=== PATIENT | female | born 1940 | race Caucasian/White ===

== ENCOUNTER 2021-06-28 06:04 | Observation (INO) | payer OTHER ==
[2021-06-23 09:06] LABS: Urine Appearance CLEAR (Clear); Urine Bilirubin NEGATIVE (Negative); Urine Blood NEGATIVE (Negative); Urine Color YELLOW (Yellow); Urine Glucose NEGATIVE (Negative); Urine Protein NEGATIVE (Negative); Urine Specific Gravity <=1.005 (1.005-1.030); Urine pH 6.5 (5.0-7.0)
[2021-06-23 09:10] LABS: Absolute Lymphocytes (CBC) 1.3 K/uL (0.7-4.9); Basophils % 0.6 % (0-1.3); Hematocrit 42.1 % (36.0-45.0); Lymphocytes % 16.2 % (15.3-44.8); MPV 7.3 fL (7.6-11.3); RBC Red Blood Cell Count 4.77 M/uL (3.86-4.86)
[2021-06-23 09:13] LABS: Urine Microscopic Reflex NO UMIC
[2021-06-23 09:33] LABS: Albumin 4.1 g/dL (3.4-5.0); Bilirubin Total 0.5 mg/dL (0.2-1.0); Potassium 3.5 mmol/L (3.5-5.1); Protein, Total 7.6 g/dL (6.4-8.2)
[2021-06-23 09:42] LABS: Protime INR 0.93
--- NOTE | 2021-06-23 10:45 | RAD REPORT ---
EXAM DESCRIPTION: Mellisa Alba (2 Views)06/23/2021 8:55 am CLINICAL HISTORY: Preop COMPARISON: 2014 FINDINGS: Large hiatal hernia. Small granuloma left lung The lungs appear clear of acute infiltrate. The heart is probably normal in size IMPRESSION: No acute abnormalities displayed
[2021-06-28] MEDS ORDERED: GABAPENTIN 100 MG CAP ONE (06:45)
[2021-06-28] MEDS ORDERED: ACETAMINOPHEN 500 MG TAB ONE (06:45)
[2021-06-28] MEDS ORDERED: CELECOXIB 100 MG CAPSULE ONE (06:45)
[2021-06-28] MEDS ORDERED: FENTANYL CITR 100 MCG/2 ML ONE (06:45)
[2021-06-28] MEDS ORDERED: MIDAZOLAM HCL 2 MG/2 ML INJ ONE (06:45)
[2021-06-28] MEDS ORDERED: LIDOCAINE 1% MPF 5 ML VIAL ONE (06:45)
[2021-06-28] MEDS ORDERED: dexAMETHasone 10 MG/ML VIAL ONE ×2 (06:45→07:45)
[2021-06-28] MEDS ORDERED: NS 0.9% VIAL 10 ML ONE ×2 (06:45→08:22)
[2021-06-28] MEDS ORDERED: NA CHLORIDE 0.9% 1,000 ML ONE (06:46)
[2021-06-28] MEDS ORDERED: Oxycodone HCl/Acetaminophen 1 TAB TAB ONE (06:46)
[2021-06-28] MEDS ORDERED: HYDROMORPHONE HCL 1 MG/ML INJ ONE (06:46)
[2021-06-28] MEDS ORDERED: BUPIVACAINE 0.25% PF 30 ML VIAL ONE (06:46)
[2021-06-28] MEDS ORDERED: TRANEXAMIC ACID 1,000 MG in NA CHLORIDE 0.9% 50 ML IV ONE (07:00)
[2021-06-28] MEDS: CEFAZOLIN/SWI 2gm 2 GM/20 ML SYR ONE ×2 (07:40→07:59)
[2021-06-28] MEDS ORDERED: KETOROLAC 30 MG/ML INJ ONE (07:45)
[2021-06-28] MEDS ORDERED: LIDOCAINE 2% MPF 5 ML VIAL ONE (07:45)
[2021-06-28] MEDS ORDERED: propofoL 200 MG/20 ML VIAL IV ONE (07:45)
[2021-06-28] MEDS ORDERED: KETAMINE HCL 500 MG/5 ML VIAL ONE (07:46)
[2021-06-28] MEDS ORDERED: ONDANSETRON 4 MG/2 ML VIAL ONE (07:46)
[2021-06-28] MEDS ORDERED: EPHEDRINE SULF 50 MG/ML VIAL ONE (08:54)
--- NOTE | 2021-06-28 09:28 | P.BOP ---
Preoperative diagnosis: left knee arthritis Postoperative diagnosis: same Primary procedure: left total knee arthoplasty Estimated blood loss: <50 ccs Anesthesia: General Complications: None Transferred to: Recovery Room
[2021-06-28] MEDS ORDERED: DOCUSATE NA 100 MG CAP PO PRN (09:30)
[2021-06-28] MEDS ORDERED: MORPHINE/NS PCA 50 MG/50 ML PCA.SYRING IV PRN (09:30)
[2021-06-28] MEDS ORDERED: NALOXONE 0.4 MG/ML VIAL IV PRN (09:30)
[2021-06-28] MEDS ORDERED: HYDROCODONE/APAP 7.5/325 MG TAB PO PRN (09:30)
[2021-06-28] MEDS ORDERED: Ringers Lactate 1,000 ML IV ONE (09:39)
--- NOTE | 2021-06-28 09:56 | OP ---
Date of Procedure: 06/28/2021 Surgeon: Yahir Norris MD Preoperative Diagnosis: Left severe degenerative joint disease of the knee. Postoperative Diagnosis: Left severe degenerative joint disease of the knee. Procedure: Left total knee arthroplasty using the [employer] system. Estimated Blood Loss: Less than 50 mL. Complications: There were no complications. Pathology Specimens: No pathology specimens. Indications For Operation: Ms. Lopez is an 81-year-old female, who unfortunately has severe pain related to her left knee. This continues despite conservative care and risks, benefits, and alternat kavita to total knee arthroplasty discussed with her. She states she understands things as presented a nd wished to proceed. Procedure In Detail: The patient was then given a block in the holding area and then taken to the op erating room where general anesthesia was obtained by the Anesthesia staff. Following this, she was then placed on the operative table and her left lower extremity was then prepped and draped in the ua sterile fashion for arthroplasty. Following this, the leg was then elevated and gently exsanguin ated using an Pankaj wrap. Tourniquet was raised. A standard anterior incision was taken down carefull y through skin only. Meticulous hemostasis being maintained using Bovie electrocautery. The appropr iate level was developed and the superior medial pole of patella was marked. This was then followed by a standard medial parapatellar arthrotomy, which demonstrates severe bone on bone changes on the m edial side as well as less severe arthritic changes of the patellofemoral joint and the lateral selena rtment. The medial and lateral menisci as well as some of the fat pad were removed as the patella wa s everted. The anterior cruciate ligament was removed. An intramedullary alignment guide was then p laced. A distal cut was then made. It was then sized to a size 65. The remainder of the femur was then cut. Attention was then turned to the tibia, which was cut in a standard fashion to a size 71 a nd appeared to be appropriate. After this, it was then trialed and was found to come to full extensi on to be well balanced in both flexion and extension. Attention was then turned to patella. It was calipered and cut, and then the knee was brought through a range of motion with the trial patella and appears quite appropriately. After this, the trial components were removed and the box cut in the t ibia was punched. The joint surfaces were prepped for cementation. All of the final implants with t he exception of the polyethylene were then placed and held in place with removal any unsupported ceme nt until dried. After this, it was brought through range of motion and the final poly was then place d. At the conclusion of the case, the knee goes through full range of motion and found to be stable and with good balancing. The patella glides appropriately. The wound was copiously irrigated and th e fascia closed in a watertight fashion using Ethibond sutures followed by closure of skin using Vicr yl followed by mayela. The patient was then placed in a well-padded sterile dressing, awakened, and taken to the recovery room in good condition. There were no complications. SE/MODL Voice ID: [id number] Report ID: [id number]
[2021-06-28] MEDS: HYDROMORPHONE HCL 1 MG/ML INJ ONE ×3 (10:01→10:16)
[2021-06-28] MEDS ORDERED: ONDANSETRON 4 MG/2 ML VIAL IV PRN (10:31)
[2021-06-28] MEDS ORDERED: HYDRALAZINE HCL 20 MG/ML VIAL IV PRN (10:44)
--- NOTE | 2021-06-28 10:48 | P.CNS ---
<Juan Mason - Last Filed: 06/28/21 14:29> Date of Consult: 06/28/21 Reason for Consult: Medical Management Requesting Physician: Yahir Norris Chief Complaint: Left knee pain History of Present Illness: Patient is an 81 year old female with a past medical history significant for DM 2, hypertension, OA, glaucoma who presented to the hospital for a left knee replacement with her orthopedic surgeon. Patient has been following up with her with orthopedic surgeon for left knee pain secondary to osteoarthritis and has had a couple of knee injections over the past couple of months. 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 Patient tolerated procedure appropriately. No signs or symptoms of distress noted. Patient's left knee pain is well managed with current pain medication regimen. Symptoms are aggravated or relieved by nothing. Orthopedic surgeon ordered pain medication and physical therapy. As at time of assessment patient was on a CPM machine. The hospitalist group was consulted for medical management. Home medications list reviewed: Yes - Past Medical/Surgical History Diabetic: Yes -: hypertension -: glaucoma -: arthritis -: hysterectomy -: right knee replacement -: gallbladder -: cataract -: hemorrhoid - Family History Mother Medical History: Other (see notes) Notes: Osteoporosis - Social History Smoking Status: Never smoker Alcohol use: No CD- Drugs: No Caffeine use: Yes Place of Residence: Home <Georgina Torres - Last Filed: 06/28/21 15:48> Allergies codeine Allergy (Verified 06/28/21 06:57) "Jittery" nitrous oxide Allergy (Verified 06/28/21 06:57) Shortness of breath Home Medications: Acetaminophen [Acetaminophen Extra Strength] 500 mg PO Q6HP PRN 06/23/21 Amlodipine Besylate/Valsartan [Amlodipine-Valsartan 10-160 mg] 1 each PO DAILY 06/23/21 Bimatoprost [Lumigan Opthalmic Drops] 2.5 ml OP BEDTIME 06/23/21 Review of Systems General: Unremarkable Eyes: Unremarkable ENT: Unremarkable Respiratory: Unremarkable Cardiovascular: Unremarkable Gastrointestinal: Unremarkable Genitourinary: Unremarkable Musculoskeletal: Other (Left knee pain) Integumentary: Unremarkable Neurological: Unremarkable Lymphatics: Unremarkable <Georgina Torres - Last Filed: 06/28/21 15:48> Physical Examination Temp Pulse Resp BP Pulse Ox 96.8 F 69 17 124/69 96 06/28/21 12:00 06/28/21 12:00 06/28/21 12:00 06/28/21 12:00 06/28/21 12:00 Laboratory Data (last 24 hrs) 06/28/21 10:49: Triglycerides 98, Cholesterol 193, HDL Cholesterol 70 H, Cholesterol/HDL Ratio 2.76 06/28/21 10:49: Troponin I < 0.02 <Juan Mason - Last Filed: 06/28/21 14:29> Temp Pulse Resp BP Pulse Ox 98 F 105 H 18 128/73 06/28/21 10:17 06/28/21 10:17 06/28/21 10:17 06/28/21 10:17 General: Alert, In no apparent distress, Oriented x3 HEENT: Atraumatic, PERRLA, Mucous membr. moist/pink, EOMI, Sclerae nonicteric Neck: Supple, 2+ carotid pulse no bruit, No LAD, Without JVD or thyroid abnormality Respiratory: Clear to auscultation bilaterally, Normal air movement Cardiovascular: No edema, Regular rate/rhythm, Normal S1 S2 Capillary refill: <2 Seconds Gastrointestinal: Normal bowel sounds, No tenderness Musculoskeletal: No clubbing, No swelling, No tenderness Integumentary: No rashes, No breakdown Neurological: Normal gait, Normal speech, Normal tone, Normal affect Lymphatics: No axilla or inguinal lymphadenopathy External genitalia: Deferred Rectal: Deferred <Georgina Torres - Last Filed: 06/28/21 15:48> Conclusions/Impression: Case discussed with orthopedic surgeon. Case also discussed with nurse occupational who has seen the patient. We will continue with medications for hypertension, diabetes. Physical therapy to be initiated. Anticipate improvement over the next 24 to 48 hours. Surgery plans to possibly discharge as early as tomorrow. Impression: Left knee pain secondary to severe arthritis status post left knee replacement Hypertension Diabetes mellitus type 2 Glaucoma Plan: Restart home medications. DVT prophylaxis in place. Will monitor labs closely. Accu-Cheks in place. Sliding scale in place. Will follow along with orthopedics. <Juan Mason - Last Filed: 06/28/21 14:29> Conclusions/Impression: --Left knee pain. Secondary to osteoarthritis. Status post left knee replacement POD #1. Continue physical therapy. Social service consult initiated for discharge planning. Orthopedic surgeon on board. Will await further recommendations from orthopedic surgeon. -- Acute pain\\OA. We will manage pain with current pain medication regimen. --Hypertension. Stable. Continue home medications and hydralazine p.r.n.. --DM 2. BS monitoring with sliding scale insulin. --Glaucoma. Continue home medications. --DVT prophylaxis with Lovenox subQ Documentation of Current Medications in the Medical Record - 18+ years old: Code: G8427 - current medications obtained, updated, or reviewed. Pain Assessment and Follow-Up - 18+ years old: Code: G8730 - pain assessment positive with standardized tool AND a follow up plan is documented. I have had discussion about advanced directives with the patient and /or family during this hospital admission. Addressed code status and /or goals of care. Spent more than 15 minutes. Case discussed with patient and nurse. Discharge Dispo: Plan is to discharge patient in 24 hrs. Physician Review: Patient Assessed, Agree with Above Assessment and Plan Critical Care: No <Georgina Torres - Last Filed: 06/28/21 15:48>
[2021-06-28] MEDS: INSULIN -REGULAR HUMAN 50 UNIT/0.5 ML ML SQ SCH ×3 (11:30→21:00)
[2021-06-28 13:44] VITALS: BMI 23.6
[2021-06-28] MEDS ORDERED: CEFAZOLIN/NS 1gm 1 GM/50 ML BAG IVPB SCH (17:00)
[2021-06-28] MEDS ORDERED: SODIUM CHL 0.9% 1000 ML BAG IV SCH ×2 (18:00)
[2021-06-28] MEDS: CEFAZOLIN/SWI 1gm 1 GM/10 ML SYR IV SCH (18:39)
[2021-06-28] MEDS ORDERED: NA CHLORIDE 0.9% 1,000 ML IV SCH (19:00)
[2021-06-28] MEDS: LUMIGAN OPTH SCH (21:00)
[2021-06-28 21:21] LABS: Urine Appearance CLEAR (Clear); Urine Bilirubin NEGATIVE (Negative); Urine Blood NEGATIVE (Negative); Urine Color YELLOW (Yellow); Urine Glucose 1+ (Negative); Urine Protein NEGATIVE (Negative); Urine Specific Gravity 1.015 (1.005-1.030); Urine Urobilinogen 0.2 mg/dL (0.2-1.0); Urine pH 6.5 (5.0-7.0)
[2021-06-28 21:34] LABS: Urine Microscopic Reflex NO UMIC
[2021-06-29] MEDS: CEFAZOLIN/SWI 1gm 1 GM/10 ML SYR IV SCH ×2 (00:37→09:49)
[2021-06-29] MEDS ORDERED: ENOXAPARIN 30 MG/0.3 ML SQ SCH (06:00)
--- NOTE | 2021-06-29 06:01 | P.PN ---
Subjective Date of Service: 06/29/21 Chief Complaint: Left knee pain Subjective: Improving, Doing well Physical Examination - Vital Signs Temperature: 96.9 F Blood Pressure: 128/76 Pulse: 95 Respirations: 18 Pulse Ox (%): 94 - Studies Laboratory Data (last 24 hrs) 06/28/21 10:49: Triglycerides 98, Cholesterol 193, HDL Cholesterol 70 H, Cholesterol/HDL Ratio 2.76 06/28/21 10:49: Troponin I < 0.02 Assessment & Plan Discharge Plan: Other (nursing home facility) Plan to discharge in: 48 Hours Physician Review Additional Text: Surgery: Date of Procedure: 06/28/2021 Surgeon: Yahir Norris MD Preoperative Diagnosis: Left severe degenerative joint disease of the knee. Postoperative Diagnosis: Left severe degenerative joint disease of the knee. Procedure: Left total knee arthroplasty using the [employer] system. Estimated Blood Loss: Less than 50 mL. Complications: There were no complications. Pathology Specimens: No pathology specimens. Physical exam: General: Alert, In no apparent distress, Oriented x3 HEENT: Atraumatic, PERRLA, Mucous membr. moist/pink, EOMI, Sclerae nonicteric Neck: Supple, 2+ carotid pulse no bruit, No LAD, Without JVD or thyroid abnormality Respiratory: Clear to auscultation bilaterally, Normal air movement Cardiovascular: No edema, Regular rate/rhythm, Normal S1 S2 Capillary refill: <2 Seconds Gastrointestinal: Normal bowel sounds, No tenderness Musculoskeletal: Postop changes noted to the left knee. Patient ambulating. Integumentary: Postop changes noted to the left knee Neurological: Normal gait, Normal speech, Normal tone, Normal affect Lymphatics: No axilla or inguinal lymphadenopathy External genitalia: Deferred Rectal: Deferred Impression: Left knee pain secondary to severe arthritis status post left knee replacement Hypertension Prediabetes Glaucoma Plan: Left knee pain secondary to severe arthritis status post left knee replacement: Patient doing well at this time. Patient prefers to go to a skilled facility as she is by herself and desires assistance. Social work to help with skilled placement. Will discontinue Lovenox and changed to Xarelto for DVT prophylaxis. We will also discontinue POLEYARD SUPERVISOR pump and change to oral medications. Options for oral medication provided for pain. Continue physical therapy. Will discuss with orthopedics. Hypertension: Continue Norvasc and valsartan. Parameters in place. Prediabetes: Hemoglobin A1c 5.9 continue monitor Accu-Cheks. Continue with sliding scale. Glaucoma: Continue with home medication. CODE STATUS: Full code DVT prophylaxis: Gigi Advance care [id number] minutes: Skilled placement for continued rehab Time Spent Managing Pts Care (In Minutes): 55
[2021-06-29 06:25] LABS: Protime INR 0.97
[2021-06-29 06:30] LABS: Absolute Lymphocytes (CBC) 0.5 K/uL (0.7-4.9); Basophils % 0.1 % (0-1.3); Hematocrit 32.6 % (36.0-45.0); Lymphocytes % 4.3 % (15.3-44.8); MPV 7.4 fL (7.6-11.3)
[2021-06-29 06:33] LABS: ALT/SGPT 21 U/L (12-78); AST/SGOT 11 U/L (15-37); Albumin 3.4 g/dL (3.4-5.0); Alkaline Phosphatase 59 U/L (45-117); BUN Blood Urea Nitrogen 12 mg/dL (7-18); Bicarbonate 27 mmol/L (21-32); Bilirubin Total 0.5 mg/dL (0.2-1.0); Glucose Level 148 mg/dL (74-106); Potassium 3.7 mmol/L (3.5-5.1); Protein, Total 6.3 g/dL (6.4-8.2); Sodium Level 141 mmol/L (136-145)
[2021-06-29] MEDS: INSULIN -REGULAR HUMAN 50 UNIT/0.5 ML ML SQ SCH ×4 (07:30→21:00)
[2021-06-29] MEDS ORDERED: [UNRECOGNIZED DRUG - OTHER] PO SCH (09:00)
[2021-06-29] MEDS ORDERED: VALSARTAN PO SCH (09:00)
[2021-06-29] MEDS ORDERED: AMLODIPINE BESYLATE PO SCH (09:00)
[2021-06-29] MEDS: VALSARTAN 160 MG TAB PO SCH (09:48)
[2021-06-29] MEDS: AMLODIPINE 10 MG TAB PO SCH (09:49)
[2021-06-29] MEDS ORDERED: TRAMADOL HCL 50 MG TAB PO PRN (12:47)
[2021-06-29] MEDS ORDERED: HYDROCODONE/APAP 7.5/325 MG TAB PO PRN (12:48)
[2021-06-29 13:57] LABS: Blood Morphology Comment NOT SEEN (NOT SEEN); Platelet Estimate ADEQ; White Blood Cell Scan OK (OK)
[2021-06-29] MEDS: LUMIGAN OPTH SCH (21:00)
[2021-06-29] MEDS: ACETAMINOPHEN 500 MG TAB PO PRN (22:28)
[2021-06-30] MEDS: ACETAMINOPHEN 500 MG TAB PO PRN (01:15)
--- NOTE | 2021-06-30 06:17 | P.PN ---
Subjective Date of Service: 06/30/21 Chief Complaint: Left knee pain Subjective: Improving, Doing well Physical Examination - Vital Signs Temperature: 96.9 F Blood Pressure: 127/67 Pulse: 97 Respirations: 16 Pulse Ox (%): 93 - Studies Laboratory Data (last 24 hrs) 06/29/21 05:51: Sodium 141, Potassium 3.7, BUN 12, Creatinine 0.55, Glucose 148 H, Total Bilirubin 0.5, AST 11 L, ALT 21, Alkaline Phosphatase 59 06/29/21 05:51: PT 11.2, INR 0.97 06/29/21 05:51: WBC 12.20 H D, Hgb 11.2 L D, Hct 32.6 L D, Plt Count 213 Assessment & Plan Discharge Plan: Home Plan to discharge in: 24 Hours Physician Review Additional Text: Surgery: Date of Procedure: 06/28/2021 Surgeon: Yahir Norris MD Preoperative Diagnosis: Left severe degenerative joint disease of the knee. Postoperative Diagnosis: Left severe degenerative joint disease of the knee. Procedure: Left total knee arthroplasty using the Bi[employer] system. Estimated Blood Loss: Less than 50 mL. Complications: There were no complications. Pathology Specimens: No pathology specimens. Physical exam: General: Alert, In no apparent distress, Oriented x3 HEENT: Atraumatic, PERRLA, Mucous membr. moist/pink, EOMI, Sclerae nonicteric Neck: Supple, 2+ carotid pulse no bruit, No LAD, Without JVD or thyroid abnormality Respiratory: Clear to auscultation bilaterally, Normal air movement Cardiovascular: No edema, Regular rate/rhythm, Normal S1 S2 Capillary refill: <2 Seconds Gastrointestinal: Normal bowel sounds, No tenderness Musculoskeletal: Postop changes noted to the left knee. Patient ambulating. Integumentary: Postop changes noted to the left knee Neurological: Normal gait, Normal speech, Normal tone, Normal affect Lymphatics: No axilla or inguinal lymphadenopathy External genitalia: Deferred Rectal: Deferred Impression: Left knee pain secondary to severe arthritis status post left knee replacement Hypertension Prediabetes Glaucoma Plan: Left knee pain secondary to severe arthritis status post left knee replacement: Patient doing well postoperatively. Discussed options of postop care provided. Patient not a candidate for inpatient rehab. Skilled placement likely to decline due to her increased mobility. Patient agreeable to go home with home health and physical therapy. This was discussed in detail with the patient. Will consult clinical social work therapist to help arrange for home health and physical th erapy. Case discussed with orthopedics who agrees with plan of care. I will provide Xarelto 10 mg daily for the next 14 days. Patient will continue with her home medication for blood pressure. Fall precautions in place. Physical therapy to continue with recommendations and follow-up. Hypertension: Continue home medication at home Prediabetes: Hemoglobin A1c 5.9 continue monitor Accu-Cheks. Continue with sliding scale. Glaucoma: Continue with home medication. CODE STATUS: Full code DVT prophylaxis: Xarelto Advance care [email or web address] minutes: Home with home health and physical therapy Time Spent Managing Pts Care (In Minutes): 55
[2021-06-30 06:32] LABS: Hematocrit 31.3 % (36.0-45.0)
[2021-06-30] MEDS: INSULIN -REGULAR HUMAN 50 UNIT/0.5 ML ML SQ SCH ×2 (07:30→11:30)
--- NOTE | 2021-06-30 08:48 | PN ---
Date of Progress Note: 06/30/2021 The patient is seen today. She is resting in bed. She says she did have a somewhat difficult night, most likely because of her block after surgery has worn off. She is taking pain medicine. It does appear that her pain is well controlled. Her dressing is clean, dry, and intact. At this time, she is doing well. She is being followed closely by Dr. Mason. They are trying to facilitate discharge to a senior living facility as family states that she cannot go home because of social issues and her current living situation. We will at this time pursue that. Otherwise, please refer to my disch arge instructions, which were written yesterday for care after discharge. /PAVAN Voice ID: [id number] Report ID: [id number]
[2021-06-30] MEDS ORDERED: POTASSIUM CL SA 10 MEQ TAB PO ONE (09:00)
[2021-06-30] MEDS ORDERED: RIVAROXABAN 10 MG TABLET PO SCH (09:00)
[2021-06-30 12:38] VITALS: O2SAT 93
[2021-06-30] MEDS: AMLODIPINE 10 MG TAB PO SCH (13:09)
[2021-06-30] MEDS: VALSARTAN 160 MG TAB PO SCH (13:09)
[2021-06-30 13:36] VITALS: BP 134/71; TEMP 97.9
== END 2021-06-30 13:41 | disposition home health service (06) ==
LOC: OR 06:04 → 2ND 09:31
PROVIDERS: ADMIT Orthopaedic Surgery; ATTEND Orthopaedic Surgery
PROC: 0SRD069 Replacement of Left Knee Joint with Oxidized Zirconium on Polyethylene Synthetic Substitute, Cemented, Open Approach (ICD-10-PCS; principal; 2021-06-30)
DX: M17.12 Unilateral primary osteoarthritis, left knee (principal); I10 Essential (primary) hypertension; E11.9 Type 2 diabetes mellitus without complications; K21.9 Gastro-esophageal reflux disease without esophagitis; R73.03 Prediabetes; H40.9 Unspecified glaucoma; Z20.822 Contact with and (suspected) exposure to COVID-19; Z96.651 Presence of right artificial knee joint; Z88.6 Allergy status to analgesic agent; Z88.8 Allergy status to other drugs, medicaments and biological substances; Z90.710 Acquired absence of both cervix and uterus; Z82.62 Family history of osteoporosis
CPT/HCPCS: 85025 ×2; 36415 ×4; 86900; 86850; 85610 ×2; 80061; 86901; 82947 ×10; 88304; 88311; 85730; 85018; 85014; 81003 ×2; 83036; 84484; 80053 ×2; 71046; 97110; 97116 ×4; 97139; 97161; 97530 ×5; 94010; 27447; U0003; J2704; J1650; J2250; J3010; J1100 ×2; J2270; J1170 ×2; J0690 ×2; J7120; J7030 ×3; J2405; G0379; G0378 ×3

== ENCOUNTER 2022-01-24 07:52 | Day surgery (SDC) | payer OTHER ==
--- NOTE | 2022-01-22 12:40 | RAD REPORT ---
EXAM DESCRIPTION: Mellisa Pa And Lat (2 Views)01/22/2022 12:26 pm CLINICAL HISTORY: Preop COMPARISON: 2020 FINDINGS: The lungs appear clear of acute infiltrate. The heart is normal size. Large hiatal hernia. Calcified lung granuloma IMPRESSION: No acute abnormalities displayed
[2022-01-22 13:04] LABS: Potassium 3.8 mmol/L (3.5-5.1)
[2022-01-22 13:05] LABS: Absolute Lymphocytes (CBC) 0.9 K/uL (0.7-4.9); Hematocrit 42.1 % (36.0-45.0); Lymphocytes % 11.1 % (15.3-44.8); MPV 7.5 fL (7.6-11.3)
[2022-01-24] MEDS ORDERED: Ringers Lactate 1,000 ML IV ONE (08:13)
[2022-01-24] MEDS ORDERED: NA CHLORIDE 0.9% 50 ML ONE (08:13)
[2022-01-24] MEDS ORDERED: CEFAZOLIN SODIUM 1 GM/VIAL ONE (08:13)
[2022-01-24] MEDS ORDERED: LIDOCAINE 2% MPF 5 ML VIAL ONE (10:57)
[2022-01-24] MEDS ORDERED: MIDAZOLAM HCL 2 MG/2 ML INJ ONE (10:57)
[2022-01-24] MEDS ORDERED: propofoL 200 MG/20 ML VIAL IV ONE (10:57)
[2022-01-24] MEDS ORDERED: FENTANYL CITR 100 MCG/2 ML ONE (10:57)
[2022-01-24] MEDS ORDERED: ONDANSETRON 4 MG/2 ML VIAL ONE (10:58)
[2022-01-24] MEDS ORDERED: Mastisol Adhesive Liq ONE (12:21)
[2022-01-24] MEDS ORDERED: KETOROLAC 30 MG/ML INJ ONE (12:24)
--- NOTE | 2022-01-24 12:27 | P.BOP ---
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
[2022-01-24 12:46] VITALS: O2SAT 100
[2022-01-24 14:10] VITALS: BP 132/59; TEMP 97.9
--- NOTE | 2022-01-24 15:18 | RAD REPORT ---
EXAM DESCRIPTION: [facility] - 01/24/2022 12:31 pm CLINICAL HISTORY: NEEDLE LOC, COMPARISON: [facility] BREAST NEEDLE LOCALIZATION dated 01/24/2022; 3D SCR SONY BILAT W/CAD dated 10/06/2021; MAMMO DIGITAL SCR BILAT W CAD dated 12/14/2014 FINDINGS/IMPRESSION: Mammogram obtained of the surgical specimen. The microcalcifications are in the periphery of this sample as is the needle localization wire. The calcifications are near the margin. Discussed with Dr. Schrader by Dr. Hughes around 1230 on 01/24/22
--- NOTE | 2022-01-24 15:30 | RAD REPORT ---
EXAM DESCRIPTION: [facility] BREAST NEEDLE LOCALIZATION - 01/24/2022 10:39 am CLINICAL HISTORY: NEEDLE LOC COMPARISON: 3D SCR SONY BILAT W/CAD dated 10/06/2021; MAMMO DIGITAL SCR BILAT W CAD dated 12/14/2014; MAMMO DIGITAL SCR BILAT W CAD dated 11/05/2013 PROCEDURE: Informed consent was obtained. Needle localization performed under stereotactic guidance. The patient's skin was cleaned and prepped. The patient was placed in CC compression. A Kopan's need le was advanced into the vicinity of the microcalcifications in the right breast. This was confirmed with both CC and LM views. The wire was then deployed. The patient left the mammography department in stable condition. IMPRESSION: Successful stereotactic guided needle localization of suspicious microcalcifications in the right breast.
--- NOTE | 2022-01-24 23:35 | DS ---
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 Procedures: Right breast lumpectomy, needle localized. Disposition: Home. Activity: As tolerated. No heavy lifting. Plan: Follow up in my office in 1 week. Call for appointment at [phone]. Keep area dry for 48 nathaly rs, then may remove outer dressings. Medications: See orders. TATYANA/MODL Voice ID: [id number] Report ID: [id number]
--- NOTE | 2022-01-24 23:44 | OP ---
Date of Procedure: 01/24/2022 Surgeon: Haroon Schrader MD Preoperative Diagnosis: Right breast lesion with ductal carcinoma in situ, comedo necrosis. Postoperative Diagnosis: Right breast lesion with ductal carcinoma in situ, comedo necrosis. Procedures: Right breast lumpectomy, needle localized. Estimated Blood Loss: Less than 10 mL. Specimen: Lesion within the specimen. Case discussed with Dr. Hughes. Calcification is present. We removed the extra tissue from around the needle too since we have the area to be looking abnormal. Findings: Once again, lesion within the specimen and needle. Anesthesia: General plus local. Indications: This is a case of an 82-year-old patient found to have ductal carcinoma in situ with co medo necrosis and lesion in the breast. The benefits, alternatives, and risks of needle localized willard mpectomy fully explained which include, but not limited to infection, bleeding, damage to adjacent st ructures, anesthesia complication, DE, and . She also understands based on the pathology, she m ight need more than one surgical intervention. She understands the options of if we find ductal carc inoma in situ, they have an option of mastectomy. She does not want use it at this moment, although she is considering radiation therapy if possible. If it shows back invasive, then she is going to re consider that again and decide if she is going to go for wider lumpectomy of the lymph node, but that is not the situation at this moment. The patient went this morning and have localization of the les ion by Dr. Hughes. Again directed to the OR with needle intact. Procedure In Detail: The patient was brought to the operating room, placed in supine position, anest hesia was done without complication. Breast was prepped and draped in usual sterile fashion. A need le was left intact. An incision was made in that region after time-out. Allis was placed with the n eedle to hold it to the breast tissue and then we removed not only where the wire is but also adjacen t tissue that on our gross examination looks abnormal. Since the patient has DCIS, may be a process of that, we are going to send that for a formal evaluation, because we might have to make some decisi ons in the future. We see this is just expanding from the edges, she may probably be inclined to do mastectomy in the future instead of radiation therapy. So, we sent the lesion for pathologist and ir rigated the area and closed with 3-0 chromic and 4-0 PDS. The patient tolerated the procedure well. Hemostasis was obtained before closure. The sponge count and instrument counts were correct. Jacob nt sent to Recovery in stable condition. TATYANA/MODL Voice ID: [id number] Report ID: [id number]
== END 2022-01-24 14:05 | disposition home or self-care (01) ==
LOC: OR 07:52
PROVIDERS: ATTEND Surgery
PROC: 0HBT0ZX Excision of Right Breast, Open Approach, Diagnostic (ICD-10-PCS; 2022-01-24)
PROC: 0HBT0ZZ Excision of Right Breast, Open Approach (ICD-10-PCS; principal; 2022-01-24 12:00)
DX: D05.11 Intraductal carcinoma in situ of right breast (principal); Z20.822 Contact with and (suspected) exposure to COVID-19
CPT/HCPCS: 93005; 85025; 80048; 36415; 88307; 71046; 76098; 19281; 19301; U0003; J2704; J2250; J3010; J7120; J2405; J0690

== ENCOUNTER 2023-09-16 12:16 | Emergency (ER) | payer OTHER ==
--- OUTSIDE RECORDS SUMMARY | 2023-09-16 12:21 | XMS REPORT | Continuity of Care Document ---
:1940 Author Organization [facility] t Address [address] [facility] [address] [place] [address] Care Team Providers Name Role Phone Myrtle Berry Attending Clinician Unavailable Karey Tyson Attending Clinician Unavailable Erum-Mbayo_A_AH Attending Clinician Unavailable Erum-Mbayo_A_AH Admitting Clinician Unavailable Payers Payer Name Policy Type Policy Number Effective Date Expiration Date Tricia chavezyessenia [facility] 53 [id number] 2020 [facility] ADVANTAGE 00:00:00 - [facility] [id number] 2019 - [employer] 00:00:00 (MEDICARE REPLACEMENT/ADV ANTAGE - HMO) Problems Condition Condition Condition Status Onset Resolution Last Treating Co mments Source Name Details Category Date Date Treatment Clinician Date Glaucoma Glaucoma Problem Commo n Spirit [facility] [id number] Other Problem Common chronic Spirit pain - [facility] [id number] Primary Problem 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 itis of - [facility] left knee [facility] [id number] Urine Problem Common frequency Spirit - [facility] [id number] Dysuria Problem Common Spirit [facility] [id number] Prediabete Problem Co mmon s Spirit - [facility] [id number] Urinary Problem Common tract Spirit infection - [facility] without [facility] Medical unspecifie Center d [id number] Allergic Problem Comm on reaction, Spirit initial - [facility] encounter [facility] [id number] Itching Problem Commo n Spirit - [facility] [id number] Hematuria, Problem Com mon unspecifie Spirit d - [facility] [id number] Swelling Problem Com mon [id number] of right Spirit upper - [facility] extremity [facility] [id number] Essential Problem Commo n (primary) Spirit hypertensi - [facility] on [facility] Psoriasis Psoriasis Problem Com mon [facility] [id number] Unspecifie Problem Co mmon d Spirit abnormalit - [facility] ies of [facility] Hypertensi Hypertensi Problem C ommon on on, Spirit unspecifie - [facility] d type [facility] Hyperlipid Hyperlipid Problem C ommon emia emia, Spirit unspecifie - [facility] emia type [facility] [id number] Pain in Problem Common left knee [facility] [id number] 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 [facility] [id number] Swelling Problem Comm on of left Spirit ankle - [facility] joint [facility] [id number] Rash and Problem Comm on nonspecifi Spirit c skin - [facility] eruption [facility] Allergies, Adverse Reactions, Alerts Allergy Allergy Status Severity Reaction(s) Onset Inactive Treating Comm ents Source Name Type Date Date Clinician nitrofur nitrofur Active rash Common antoin antoin [facility] 9041 Drug Active Rash Common allergy [facility] codeine codeine Active Unknown [facility] Social History Social Habit Start Date Stop Date Quantity Comments Source Sex Assigned At Com mon [facility] History of Tobacco Use Co mmon [facility] Smoking Status Start Date Stop Date Source Never Smoker [facility] Medications Ordered Filled Start Stop Current Ordering Indication Dosage Frequency Signature Comments Components Source Medication Medication Date Date Medication? Clinician (SIG) Name Name Everette Gaviria No 40mg Common (Triamcinol (Triamcinol 5-24 S pirit one) one) 00:00: - [facility] Everette Gaviria No 40mg Common (Triamcinol (Triamcinol 5-24 S pirit one) one) 00:00: - [facility] Kenalog Kenalog 2021-0 No 40mg Common (Triamcinol (Triamcinol 5-24 S pirit one) one) 00:00: - [facility] 00 [facility] Kenalog Kenalog 2021-0 No 40mg Common (Triamcinol (Triamcinol 5-24 S pirit one) one) 00:00: - [facility] 00 [facility] Triamcinolo Triamcinolo 2021-0 No 1{appli BID Triamcinol ne ne 1-11 cation_ one Acetonide Acetonide 00:00: to_affe Acetonide 0.1 % 0.1 % 00 cted_ar 0.1 % ea} Cetirizine Cetirizine 2021-0 No 1{table QD Cetirizine HCl 10 MG HCl 10 MG 1-11 t} HCl 10 MG 00:00: 00 Kenalog Kenalog 2021-0 No 40mg Common (Triamcinol (Triamcinol 1-11 S pirit one) one) 00:00: - [facility] 00 [facility] Cetirizine Cetirizine 2021-0 No 1{table QD Cetirizine HCl 10 MG HCl 10 MG 1-11 t} HCl 10 MG 00:00: 00 Triamcinolo Triamcinolo 2021-0 No 1{appli BID Triamcinol ne ne 1-11 cation_ one Acetonide Acetonide 00:00: to_affe Acetonide 0.1 % 0.1 % 00 cted_ar 0.1 % ea} Kenalog Kenalog 2021-0 No 40mg Common (Triamcinol (Triamcinol 1-11 S pirit one) one) 00:00: - [facility] 00 [facility] Cetirizine Cetirizine 2021-0 No 1{table QD Cetirizine HCl 10 MG HCl 10 MG 1-11 t} HCl 10 MG 00:00: 00 Triamcinolo Triamcinolo 2021-0 No 1{appli BID Triamcinol ne ne 1-11 cation_ one Acetonide Acetonide 00:00: to_affe Acetonide 0.1 % 0.1 % 00 cted_ar 0.1 % ea} Kenalog Kenalog 2021-0 No 40mg Common (Triamcinol (Triamcinol 1-11 S pirit one) one) 00:00: - [facility]I 00 [facility] Cetirizine Cetirizine 0 No 1{table QD Cetirizine HCl 10 MG HCl 10 MG -11 t} HCl 10 MG 00:00: 00 Triamcinolo Triamcinolo 0 No 1{appli BID Triamcinol ne ne -11 cation_ one Acetonide Acetonide 00:00: to_affe Acetonide 0.1 % 0.1 % 00 cted_ar 0.1 % ea} Kenalog Kenalog 0 No 40mg Common (Triamcinol (Triamcinol -11 S pirit one) one) 00:00: - [facility]I 00 [facility] Solumedrol Solumedrol 2018-1 No 125mg Common 125mg/2ml 125mg/2ml 1-14 Spiri t 00:00: - [facility] Solumedrol Solumedrol 2019-1 No 125mg Common 125mg/2ml 125mg/2ml 1-14 Spiri t 00:00: - CHI 00 [facility] Solumedrol Solumedrol 2019-1 No 125mg Common 125mg/2ml 125mg/2ml 1-14 Spiri t 00:00: - CHI 00 [facility] Solumedrol Solumedrol 2019-1 No 125mg Common 125mg/2ml 125mg/2ml 1-14 Spiri t 00:00: - [facility] Solumedrol Solumedrol 2019-0 No 125mL Common 125mg/2ml 125mg/2ml 3-07 Spiri t 00:00: - CHI 00 [facility] Solumedrol Solumedrol 2019-0 No 125mL Common 125mg/2ml 125mg/2ml 3-07 Spiri t 00:00: - CHI 00 [facility] Solumedrol Solumedrol 2019-0 No 125mL Common 125mg/2ml 125mg/2ml 3-07 Spiri t 00:00: - [facility] Solumedrol Solumedrol 2019-0 No 125mL Common 125mg/2ml 125mg/2ml 3-07 Spiri t 00:00: - CHI 00 [facility] Solumedrol Solumedrol 2018-0 No 125mg Common 125mg/2ml 125mg/2ml 07-15 Spiri t 00:00: - CHI 00 [facility] Solumedrol Solumedrol 2018-0 No 125mg Common 125mg/2ml 125mg/2ml 07-15 Spiri t 00:00: - CHI 00 [facility] Solumedrol Solumedrol 2018-0 No 125mg Common 125mg/2ml 125mg/2ml 07-15 Spiri t 00:00: - CHI 00 [facility] Solumedrol Solumedrol 2018-0 No 125mg Common 125mg/2ml 125mg/2ml 07-15 Spiri t 00:00: - [facility]I 00 [facility] Lipitor 20 Lipitor 20 2018-0 No QD Lipitor 20 mg mg 5-29 mg 00:00: 00 Lipitor 20 Lipitor 20 2018-0 No QD Lipitor 20 mg mg 5-29 mg 00:00: 00 Lipitor 20 Lipitor 20 2018-0 No QD Lipitor 20 mg mg 5-29 mg 00:00: 00 Lipitor 20 Lipitor 20 2018-0 No QD Lipitor 20 mg mg 5-29 mg 00:00: 00 Triamcinolo Triamcinolo No 1{appli BID Triamcinol ne ne cation_ one Acetonide Acetonide to_affe Acetonide 0.1 % 0.1 % cted_ar 0.1 % ea} Fish Oil Fish Oil No 1{capsu QD Fish Oil 435 MG 435 MG le} 435 MG Lumigan Lumigan No 1{drop_ QD Lumigan 0.01 % 0.01 % into_af 0.01 % fected_ eye_in_ the_eve ismael} Mupirocin 2 Mupirocin 2 No Mupirocin % % 2 % Exforge Exforge No 1{table QD Exforge 10-160 MG 10-160 MG t} 10-160 MG Triamcinolo Triamcinolo No 1{appli BID Triamcinol ne ne cation_ one Acetonide Acetonide to_affe Acetonide 0.1 % 0.1 % cted_ar 0.1 % ea} Exforge Exforge No 1{table QD Exforge 10-160 MG 10-160 MG t} 10-160 MG Fish Oil Fish Oil No 1{capsu QD Fish Oil 435 MG 435 MG le} 435 MG Lumigan Lumigan No 1{drop_ QD Lumigan 0.01 % 0.01 % into_af 0.01 % fected_ eye_in_ the_eve ismael} Triamcinolo Triamcinolo No 1{appli BID Triamcinol ne ne cation_ one Acetonide Acetonide to_affe Acetonide 0.1 % 0.1 % cted_ar 0.1 % ea} Exforge Exforge No 1{table QD Exforge 10-160 MG 10-160 MG t} 10-160 MG Fish Oil Fish Oil No 1{capsu QD Fish Oil 435 MG 435 MG le} 435 MG Lumigan Lumigan No 1{drop_ QD Lumigan 0.01 % 0.01 % into_af 0.01 % fected_ eye_in_ the_eve ismael} Triamcinolo Triamcinolo No 1{appli BID Triamcinol ne ne cation_ one Acetonide Acetonide to_affe Acetonide 0.1 % 0.1 % cted_ar 0.1 % ea} Exforge Exforge No 1{table QD Exforge 10-160 MG 10-160 MG t} 10-160 MG Fish Oil Fish Oil No 1{capsu QD Fish Oil 435 MG 435 MG le} 435 MG Lumigan Lumigan No 1{drop_ QD Lumigan 0.01 % 0.01 % into_af 0.01 % fected_ eye_in_ the_eve ismael} Vital Signs Vital Name Observation Time Observation Value Comments Source height 2022-07-09 15:00:00 59.25 [in_i] [facility] weight 2022-07-09 15:00:00 126.5 [lb_av] [facility] temperature 2022-07-09 15:00:00 96.3 [degF] [facility] bmi 2022-07-09 15:00:00 25.33 kg/m2 [facility] oximetry 2022-07-09 15:00:00 100 % Common S [facility] respiratory rate 2022-07-09 15:00:00 16 /min Comm on [facility] blood pressure 2022-07-09 15:00:00 139 mm[Hg] Common [facility] - systolic [facility] blood pressure 2022-07-09 15:00:00 76 mm[Hg] Common [facility] - diastolic [facility] Procedures This patient has no known procedures. Encounters Start End Encounter Admission Attending Care Care Encounter Source Date/Time Date/Time Type Type Clinicians Facility Department ID 2023-06-03 Outpatient Berry, STLMLC STLMLC [id number] Common 09:55:00 Avnee [id number] [facility] 2022-07-09 Outpatient Karey Tyson STLMLC STLMLC [id number] Common 14:52:03 [id number] [facility] 2022-09-18 2022-09-18 (TEL) STLMLC STLMLC [id number] Co mmon 00:00:00 00:00:00 [facility] 2022-08-29 2022-08-29 (TEL) STLMLC STLMLC [id number] Co mmon 00:00:00 00:00:00 [facility] 2022-07-09 2022-07-09 OFFICE STLMLC STLMLC [id number] Co mmon 00:00:00 00:00:[address] [facility] LEVEL 4 [facility] 2020-02-04 2020-02-04 Outpatient Erum-Mbayo VFP VFP [id number] [facility] 03:35:00 03:35:00 _A_AH [id number] [facility] 2020-02-04 2020-02-04 Outpatient Erum-Mbayo VFP VFP [id number] [facility] 03:35:00 03:35:00 _A_AH [id number] Family Practic e 2020-02-04 2020-02-04 Outpatient Erum-Mbayo VFP VFP [id number] [facility] 03:35:00 03:35:00 _A_AH [id number] Family Practic e 2020 2020 Outpatient ErumAshleymunatyler VFP VFP [id number] [facility] 07:18:00 07:18:00 __ [id number] [facility] Practic e Results This patient has no known results.
[2023-09-16] MEDS ORDERED: NA CHLORIDE 0.9% 1,000 ML ONE (13:06)
[2023-09-16] MEDS ORDERED: MORPHINE 2 MG/ML SYR ONE (13:06)
[2023-09-16] MEDS ORDERED: ONDANSETRON 4 MG/2 ML VIAL ONE (13:06)
[2023-09-16 13:19] LABS: Absolute Lymphocytes (CBC) 1.2 K/uL (0.7-4.9); Hematocrit 41.4 % (36.0-45.0); Lymphocytes % 13.8 % (15.3-44.8); MCV 88.2 fL (80-100); MPV 7.1 fL (7.6-11.3); Platelets 241 thou/uL (152-406)
[2023-09-16 13:31] LABS: Specific Gravity 1.005 (1.005-1.030); Urine Bacteria <20 /HPF (<20); Urine Bilirubin NEGATIVE (Negative); Urine Blood Negative (Negative); Urine Clarity Extremely Turbid (Clear); Urine Color Colorless (Yellow); Urine Glucose NEGATIVE (Negative); Urine Mucus Slight /HPF (None Seen); Urine Protein NEGATIVE (Negative); Urine Urobilinogen Normal (Normal)
[2023-09-16 13:31] LABS: Albumin 3.6 g/dL (3.4-5.0); Bilirubin Total 0.3 mg/dL (0.2-1.0); Potassium 3.5 mEq/L (3.5-5.1); Protein, Total 7.2 g/dL (6.4-8.2)
--- NOTE | 2023-09-16 14:33 | RAD REPORT ---
EXAM DESCRIPTION: CT - Abdomen Pelvis W Contrast - 09/16/2023 1:58 pm CLINICAL HISTORY: Abdominal pain COMPARISON: none. TECHNIQUE: Computed axial tomography of the abdomen pelvis was obtained. 100 cc Isovue-300 was admin istered intravenously. Oral contrast was not requested which limits evaluation of bowel and appendix All CT scans are performed using dose optimization technique as appropriate and may include automated exposure control or mA/KV adjustment according to patient size. FINDINGS: Large hiatal hernia contains stomach and colon. Chronic gastric volvulus is present within the hernia . Cholecystectomy Liver, spleen, pancreas, adrenals kidneys are unremarkable. Diverticula stem from the colon without visualization diverticulitis. Normal appendix. Hysterectomy. No adnexal mass Mild left lower lobe atelectasis IMPRESSION: Large hiatal hernia containing a chronic gastric volvulus No acute abnormality is displayed
--- NOTE | 2023-09-16 14:53 | ER ---
Nurse's Notes [facility] Name: Aliya Goldberg Age: 83 yrs Sex: Female : 1940 Arrival Date: 09/16/2023 Time: 12:16 Bed 17 Private MD: Diagnosis: UTI/ Urinary tract infection, site not specified;Chronic Gastric Volvulus Presentation: 09/16 12:29 Chief complaint: Patient states: right lower back pain onset . Pt states that cm10 now she is having RLQ pain, does not radiate. No urinary symptoms, no fevers. Coronavirus screen: Vaccine status: Patient reports receiving the 2nd dose of the covid vaccine. Client denies travel out of the [place] in the last 14 days. Ebola Screen: Patient denies travel to an Ebola-affected area in the 21 days before illness onset. No symptoms or risks identified at this time. Initial Sepsis Screen: Does the patient meet any 2 criteria? HR > 90 bpm. Does the patient have a suspected source of infection? No. Patient's initial sepsis screen is negative. Risk Assessment: Do you want to hurt yourself or someone else? Patient reports no desire to harm self or others. Onset of symptoms was September 16, 2023. 12:29 Method Of Arrival: Ambulatory cm10 12:29 Acuity: STEPHANIE 3 cm10 Triage Assessment: 12:34 General: Appears in no apparent distress. comfortable, Behavior is calm, cooperative. cm10 Pain: Complains of pain in right low back and right lower quadrant Pain does not radiate. Pain currently is 8 out of 10 on a pain scale. Quality of pain is described as aching, sharp. EENT: No deficits noted. No signs and/or symptoms were reported regarding the EENT system. Neuro: No deficits noted. Level of Consciousness is awake, alert, obeys commands, Oriented to person, place, time, situation. Respiratory: No deficits noted. Airway is patent Respiratory effort is even, unlabored, Respiratory pattern is regular, symmetrical. Historical: - Allergies: 12:31 nitrous oxide; cm10 - PMHx: 12:32 Hypertensive disorder; Glaucoma; cm10 12:32 Breast Cancer; cm10 - PSHx: 12:32 Lumpectomy of breast; Right; Knee replacement; Cholecystectomy; Total abdominal cm10 hysterectomy; - Immunization history:: Adult Immunizations up to date. - Social history:: Smoking status: Patient denies any tobacco usage or history of. Screenin:[address] [facility] ED Fall Risk Assessment (Adult) History of falling in the last 3 months, kc6 including since admission No falls in past 3 months (0 pts) Confusion or Disorientation No (0 pts) Intoxicated or Sedated No (0 pts) Impaired Gait No (0 pts) Mobility Assist Device Used No (0 pt) Altered Elimination No (0 pt) Score/Fall Risk Level 0 - 2 = Low Risk. Abuse screen: Denies threats or abuse. Denies injuries from another. Nutritional screening: No deficits noted. Tuberculosis screening: No symptoms or risk factors identified. Assessment: 12:37 Reassessment: please see triage assessment. kc6 Vital Signs: 12:29 BP 141 / 82; Pulse 109; Resp 18 S; Temp 98.2(O); Pulse Ox 96% on R/A; Weight 56.7 kg cm10 (R); Height 5 ft. 0 in. (R); Pain 8/10; 14:50 BP 137 / 80; Pulse 88; ec2 15:13 BP 135 / 8; Pulse 78; Pulse Ox 97% on R/A; ap3 12:29 Body Mass Index 24.41 (56.70 kg, 152.4 cm) cm10 12:29 Pain Scale: Adult cm10 ED Course: 12:21 Patient arrived in ED. mg5 12:28 Gideon Rico MD is Attending Physician. ec2 12:31 Triage completed. cm10 12:35 Arm band placed on Patient placed in an exam room, on a stretcher. cm10 12:36 Jesenia Cade, ALLISON is Primary Nurse. kc6 12:37 Patient has correct armband on for positive identification. Bed in low position. Call kc6 light in reach. Side rails up X 1. Client placed on continuous cardiac and pulse oximetry monitoring. NIBP monitoring applied. 13:09 Inserted saline lock: 22 gauge in left antecubital area, using aseptic technique. Blood hb collected. 13:11 CBC with Diff Sent. hb 13:11 CMP Sent. hb 13:11 Lipase Sent. hb 13:59 CT Abd/Pelvis - IV Contrast Only In Process Unspecified. EDMS 15:12 No provider procedures requiring assistance completed. IV discontinued, intact, ap3 bleeding controlled, No redness/swelling at site. Pressure dressing applied. 15:13 Provided Education on: discharge instructions. ap3 Administered Medications: 13:11 Drug: NS 0.9% IV 1000 ml IV at 1 bolus Per protocol; 1000 mL bolus Route: IV; Rate: 1 hb bolus; Site: left antecubital; 15:13 Follow up: IV Status: Completed infusion ap3 13:11 Drug: Ondansetron IVP 4 mg IVP once; over 2 minutes Route: IVP; Site: left antecubital; hb 15:12 Follow up: Response: No adverse reaction ap3 13:11 Drug: morphine IVP or IV 2 mg IVP once over 4 mins Route: IVP; Infused Over: 4 mins; hb Site: left antecubital; 15:12 Follow up: Response: No adverse reaction; Pain is decreased ap3 14:50 CANCELLED (Other Intervention Used): rocephin1 grams IV at calculated rate once; Given ec2 slow IV push per pharmacy instructions 15:12 Drug: Cephalexin PO 500 mg PO once Route: PO; ap3 15:13 Follow up: Response: No adverse reaction ap3 Medication: 15:13 VIS not applicable for this client. ap3 Outcome: 14:52 Discharge ordered by MD. ec2 15:13 Discharged to home ambulatory, ap3 15:13 Condition: good 15:13 Discharge instructions given to patient, Instructed on discharge instructions, follow up and referral plans. medication usage, Demonstrated understanding of instructions, follow-up care, medications, Prescriptions given X 1, 15:17 Patient left the ED. ap3 Signatures: Dispatcher [employer] EDRama Heaton RN RN hb Prokisch, Amanda RN RN ap3 Jesenia Cade RN RN kc6 Sherie Schrader RN RN 10 Marilin Moreira [facility] Gideon Rico MD MD ec2
--- NOTE | 2023-09-16 14:53 | EDPHYS ---
Physician Documentation [facility] Name: Aliya Goldberg Age: 83 yrs Sex: Female : 1940 Arrival Date: 09/16/2023 Time: 12:16 Bed 17 Private MD: ED Physician Gideon Rico HPI: 09/16 12:50 This 83 yrs old Female presents to ER via Ambulatory with complaints of Low ec2 Back Pain, SIDE PAIN. 12:50 Patient arrives today due to concern for right lower quadrant abdominal pain as well as ec2 right lateral low back pain. States that the pain has been ongoing for several days and progressively getting worse. Patient reports no fevers or chills, reports occasional nausea without vomiting. States that she felt some diarrhea symptoms as well. Patient reports no urinary problems. Patient reports a history of previous cholecystectomy, hysterectomy. Denies issues with p.o. intake.. Historical: - Allergies: 12:31 nitrous oxide; cm10 - PMHx: 12:32 Hypertensive disorder; Glaucoma; cm10 12:32 Breast Cancer; cm10 - PSHx: 12:32 Lumpectomy of breast; Right; Knee replacement; Cholecystectomy; Total abdominal cm10 hysterectomy; - Immunization history:: Adult Immunizations up to date. - Social history:: Smoking status: Patient denies any tobacco usage or history of. ROS: 12:50 Constitutional: as per hpi ec2 Exam: 12:50 Constitutional: GEN: NAD Head: atraumatic Eyes: EOMI Ears: External ears are ec2 normal. CV: Tachycardia LUNGS: no respiratory distress ABD: non-distended, soft, tender in the right lower quadrant, no guarding, not rigid SKIN: no evidence of rashes MSK: Right lateral low back tenderness palpation without deformities or crepitus appreciated. NEURO: moves all extremities equally Vital Signs: 12:29 BP 141 / 82; Pulse 109; Resp 18 S; Temp 98.2(O); Pulse Ox 96% on R/A; Weight 56.7 kg cm10 (R); Height 5 ft. 0 in. (R); Pain 8/10; 14:50 BP 137 / 80; Pulse 88; ec2 15:13 BP 135 / 8; Pulse 78; Pulse Ox 97% on R/A; ap3 12:29 Body Mass Index 24.41 (56.70 kg, 152.4 cm) cm10 12:29 Pain Scale: Adult cm10 MDM: 12:28 Patient medically screened. ec2 12:50 ED course: Patient arrives today due to concern for right lower back pain as well as ec2 right lower quadrant abdominal pain. Examination remarkable for well-appearing nontoxic dividual is otherwise in no acute distress who has a slight tachycardia and slight right lower quadrant tenderness palpation. Will obtain lab work, CT abdomen pelvis and treat the patient pain with IV morphine, Zofran as well as crystalloid. Currently considering process such as appendicitis, pyelonephritis, urinary tract infection, musculoskeletal pain.. 14:35 ED course: CT abdomen pelvis shows hiatal hernia with chronic gastric volvulus, no ec2 acute abnormality identified, CBC is reassuring without leukocytosis, metabolic profile is also reassuring. Urine is infectious appearing with leuk esterase as well as WBCs present. I will give the patient antibiotics for her urinary tract infection. . 14:50 ED course: On reassessment patient is well-appearing in no acute distress. I discussed ec2 the results with the patient, and regards to the chronic gastric volvulus, patient is eating and drinking without any issue, no issues with bloody stools, no issues with constipation. I discussed case with general surgery who recommended outpatient follow-up and no emergent work-up or management at this time. Discharge patient on Keflex for antibiotic for urinary tract infection. Patient discharged home, return precautions given.. 14:50 Data reviewed: vital signs. ec2 09/16 12:49 Order name: CBC with Diff; Complete Time: 14:34 ec2 09/16 12:49 Order name: CMP; Complete Time: 14:34 ec2 09/16 12:49 Order name: Lipase; Complete Time: 14:34 ec2 09/16 12:49 Order name: Urinalysis w/ reflexes; Complete Time: 14:34 ec2 09/16 13:36 Order name: Urine Culture EDNC 09/16 12:49 Order name: CT Abd/Pelvis - IV Contrast Only; Complete Time: 14:34 ec2 09/16 12:49 Order name: IV Saline Lock; Complete Time: 13:11 ec2 09/16 12:49 Order name: Labs collected and sent; Complete Time: 13:11 ec2 Administered Medications: 13:11 Drug: NS 0.9% IV 1000 ml IV at 1 bolus Per protocol; 1000 mL bolus Route: IV; Rate: 1 hb bolus; Site: left antecubital; 15:13 Follow up: IV Status: Completed infusion ap3 13:11 Drug: Ondansetron IVP 4 mg IVP once; over 2 minutes Route: IVP; Site: left antecubital; hb 15:12 Follow up: Response: No adverse reaction ap3 13:11 Drug: morphine IVP or IV 2 mg IVP once over 4 mins Route: IVP; Infused Over: 4 mins; hb Site: left antecubital; 15:12 Follow up: Response: No adverse reaction; Pain is decreased ap3 14:50 CANCELLED (Other Intervention Used): rocephin1 grams IV at calculated rate once; Given ec2 slow IV push per pharmacy instructions 15:12 Drug: Cephalexin PO 500 mg PO once Route: PO; ap3 15:13 Follow up: Response: No adverse reaction ap3 Disposition Summary: 09/16/23 14:52 Discharge Ordered Notes: Location: Home ec2 Condition: Stable ec2 Diagnosis - UTI/ Urinary tract infection, site not specified ec2 - Chronic Gastric Volvulus ec2 Discharge Instructions: - Discharge Summary Sheet ec2 - Urinary Tract Infection, Adult ec2 Forms: - Medication Reconciliation Form ec2 - Thank You Letter ec2 - Antibiotic Education ec2 - Prescription Opioid Use ec2 - Patient Portal Instructions ec2 - Leadership Thank You Letter ec2 Prescriptions: - Cephalexin 500 mg Oral capsule - take 1 capsule ORAL route every 12 hours for 7 days; 14 capsule; Refills: 0, ec2 Product Selection Permitted Signatures: Dispatcher [employer] EDRama Heaton RN RN Leticia Pressley RN RN ap3 Sherie Schrader RN RN cm10 Gideon Rico MD MD ec2 Corrections: (The following items were deleted from the chart) 14:50 14:40 Rocephin IV 1 grams IV at calculated rate once; Given slow IV push per pharmacy ec2 instructions ordered. ec2
[2023-09-16] MEDS ORDERED: CEPHALEXIN 250 MG CAP ONE (15:18)
== END 2023-09-16 15:17 | disposition home or self-care (01) ==
LOC: ER 12:16
DX: N39.0 Urinary tract infection, site not specified (principal); I10 Essential (primary) hypertension; Z88.8 Allergy status to other drugs, medicaments and biological substances
CPT/HCPCS: 96361; 87088; 85025; 81001; 87086; 36415; 83690; 80053; 74177; 96375; 96374; 99284; Q9967; J2270; J2405; J7030

== ENCOUNTER 2024-07-20 14:41 | Emergency (ER) | payer OTHER ==
--- OUTSIDE RECORDS SUMMARY | 2024-07-20 14:45 | XMS REPORT | Continuity of Care Document ---
Author Name Unknown Address [address] [facility] [address] [place] [address] [facility] Address [address] [facility] [address] [place] [address] Care Team Providers Care Manager Port Name Role Phone Andreina Joyner Attending Clinician Unavail able Myrtle Berry Attending Clinician Unavailable Karey Tyson Attending Clinician Unavailable GC_GCBZW_Kadiyala_S Attending Clinician Unavaila ble Erum-Mbayo_A_AH Attending Clinician Unavailable GC_GCBZW_Kadiyala_S Admitting Clinician Unavaila ble Erum-Mbayo_A_AH Admitting Clinician Unavailable Payers Payer Name Policy Type Policy Number Effective Date Expirati on Date Source [facility] Advantage (HMO-POS) [id number] 2023 00:00:00 [facility] Advantage (HMO-POS) 53 [id number] 2020 00:00:00 [facility]ICARE REPLACEMENT/ADV ANTAGE - HMO) [id number] 2019 00:00:00 Problems Condition Name Condition Details Condition Category Status Onset Date Resolution Date Last Treatment Date Treating Clinician Comments Source [id number] Prediabete s Problem [facility] [id number] Hematuria, unspecifie d Problem [facility] [id number] Diaphragma tic hernia without obstructio 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 gangrene Problem [facility] [id number] Swelling of right upper extremity Problem Common [facility] [id number] Essential (primary) hypertensi on Problem Common [facility] Psoriasis Psoriasis Problem Comm on [facility] [id number] Unspecifie d abnormalit ies of heart beat Problem [facility] Hyperlipid aemia Hyperlipid emia, unspecifie d hyperlipid emia type Problem Common [facility] [id number] 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 [facility] [id number] Swelling of left ankle joint Problem [facility] Glaucoma Glaucoma Problem [facility] [id number] Other chronic pain Problem [facility] [id number] Primary osteoarthr itis of left knee Problem [facility] 38432001 Flexural eczema Problem Common [facility] [id number] Vitamin D deficiency Problem [facility] [id number] Seasonal allergies Problem [facility] Allergies, Adverse Reactions, Alerts Allergy Name Allergy Type Status Severity Reaction(s) Onset Date Inactive Date Treating Clinician Comments Source nitrofur antoin nitrofur antoin Active rash [facility] 9041 Drug allergy Active Rash [facility] codeine codeine Active Unknown [facility] Social History Social Habit Start Date Stop Date Quantity Comments Source Sex Assigned At [facility] History of Tobacco Use [facility] Smoking Status Start Date Stop Date Source Never Smoker [facility] Medications Ordered Medication Name Filled Medication Name Start Date Stop Date Current Medication? Ordering Clinician Indication Dosage Frequency Signature (SIG) Comments Components Source Cranberry Cranberry 06-04 00:00: 00 No 1{capsu le} TID Cranberry Triamcinolo ne Acetonide 0.1 % Triamcinolo ne Acetonide 0.1 % 12-05 00:00: 00 No 1{appli cation_ to_affe cted_ar ea} BID Triamcinol one Acetonide 0.1 % Cetirizine HCl 10 MG Cetirizine HCl 10 MG - 00:00: 00 No 1{table t} QD Cetirizine HCl 10 MG Kenalog (Triamcinol one) Kenalog (Triamcinol one) 12-05 00:00: 00 No 40mg [facility] Solumedrol 125mg/2ml Solumedrol 125mg/2ml 2018-11- 00:00: 00 No 125mg [facility] Lipitor 20 mg Lipitor 20 mg 04-22 00:00: 00 No QD Lipitor 20 mg Lumigan 0.01 % Lumigan 0.01 % No 1{drop_ into_af fected_ eye_in_ the_eve ismael} QD Lumigan 0.01 % Mupirocin 2 % Mupirocin 2 % No Mupirocin 2 % Exforge 10-160 MG Exforge 10-160 MG No 1{table t} QD Exforge 10-160 MG Dorzolamide HCl 2 % Dorzolamide HCl 2 % No 1{drop_ into_af fected_ eye} TID Dorzolamid e HCl 2 % Fish Oil 1000 MG Fish Oil 1000 MG No 2{capsu le} QD Fish Oil 1000 MG amLODIPine Besylate 10 MG amLODIPine Besylate 10 MG No 1{table t} QD amLODIPine Besylate 10 MG Immunizations Ordered Immunization Name Filled Immunization Name Date Status Comments Source Moderna COVID-19 Vaccine (Low Dose Booster) Moderna COVID-19 Vaccine (Low Dose Booster) 2021-09-29 10:58:00 Completed [facility] Moderna COVID-19 Vaccine (Low Dose Booster) Moderna COVID-19 Vaccine (Low Dose Booster) 2021-09-29 10:58:00 Completed [facility] Moderna COVID-19 Vaccine (Low Dose Booster) Moderna COVID-19 Vaccine (Low Dose Booster) 2021-09-29 10:58:00 Completed [facility] Moderna COVID-19 Vaccine (Low Dose Booster) Moderna COVID-19 Vaccine (Low Dose Booster) 2021-09-29 10:58:00 Completed [facility] FluAD FluAD 2021-09-12 14:35:00 Completed [facility] FluAD FluAD 2021-09-12 14:35:00 Completed [facility] FluAD FluAD 2021-09-12 14:35:00 Completed [facility] FluAD FluAD 2021-09-12 14:35:00 Completed [facility] Moderna COVID-19 Vaccine Moderna COVID-19 Vaccine 2020-12-19 15:07:00 Completed [facility] Moderna COVID-19 Vaccine Moderna COVID-19 Vaccine 2020-12-19 15:07:00 Completed [facility] Moderna COVID-19 Vaccine Moderna COVID-19 Vaccine 2020-12-19 15:07:00 Completed [facility] Moderna COVID-19 Vaccine Moderna COVID-19 Vaccine 2020-12-19 15:07:00 Completed [facility] FLUZONE HIGH DOSE OVER 65 FLUZONE HIGH DOSE OVER 65 2020-08-29 12:34:00 Completed [facility] FLUZONE HIGH DOSE OVER 65 FLUZONE HIGH DOSE OVER 65 2020-08-29 12:34:00 Completed [facility] FLUZONE HIGH DOSE OVER 65 FLUZONE HIGH DOSE OVER 65 2020-08-29 12:34:00 Completed [facility] FLUZONE HIGH DOSE OVER 65 FLUZONE HIGH DOSE OVER 65 2020-08-29 12:34:00 Completed [facility] Prevnar 20 (PCV20) Prevnar 20 (PCV20) Unknown Completed [facility] FluAD Quad SD FluAD Quad SD Unknown Completed [facility] Moderna COVID-19 Vaccine (Low Dose Booster) Moderna COVID-19 Vaccine (Low Dose Booster) Unknown Completed [facility] Moderna COVID-19 Vaccine Moderna COVID-19 Vaccine Unknown Completed [facility] FluAD FluAD Unknown Completed [facility] FLUZONE HIGH DOSE OVER 65 FLUZONE HIGH DOSE OVER 65 Unknown Completed [facility] Prevnar 20 (PCV20) Prevnar 20 (PCV20) Unknown Completed [facility] Fluad (aIIV4) - SDS - 0.5mL Fluad (aIIV4) - SDS - 0.5mL Unknown Completed [facility] Moderna COVID-19 Vaccine (Low Dose Booster) Moderna COVID-19 Vaccine (Low Dose Booster) Unknown Completed [facility] Moderna COVID-19 Vaccine Moderna COVID-19 Vaccine Unknown Completed [facility] FluAD FluAD Unknown Completed [facility] FLUZONE HIGH DOSE OVER 65 FLUZONE HIGH DOSE OVER 65 Unknown Completed [facility] Prevnar 20 (PCV20) Prevnar 20 (PCV20) Unknown Completed [facility] Fluad (aIIV4) - SDS - 0.5mL Fluad (aIIV4) - SDS - 0.5mL Unknown Completed [facility] Moderna COVID-19 Vaccine (Low Dose Booster) Moderna COVID-19 Vaccine (Low Dose Booster) Unknown Completed [facility] Moderna COVID-19 Vaccine Moderna COVID-19 Vaccine Unknown Completed [facility] FluAD FluAD Unknown Completed [facility] FLUZONE HIGH DOSE OVER 65 FLUZONE HIGH DOSE OVER 65 Unknown Completed [facility] Prevnar 20 (PCV20) Prevnar 20 (PCV20) Unknown Completed [facility] Fluad (aIIV4) - SDS - 0.5mL Fluad (aIIV4) - SDS - 0.5mL Unknown Completed [facility] Moderna COVID-19 Vaccine (Low Dose Booster) Moderna COVID-19 Vaccine (Low Dose Booster) Unknown Completed [facility] Moderna COVID-19 Vaccine Moderna COVID-19 Vaccine Unknown Completed [facility] FluAD FluAD Unknown Completed [facility] FLUZONE HIGH DOSE OVER 65 FLUZONE HIGH DOSE OVER 65 Unknown Completed [facility] Prevnar 20 (PCV20) Prevnar 20 (PCV20) Unknown Completed [facility] Fluad (aIIV4) - SDS - 0.5mL Fluad (aIIV4) - SDS - 0.5mL Unknown Completed [facility] Moderna COVID-19 Vaccine (Low Dose Booster) Moderna COVID-19 Vaccine (Low Dose Booster) Unknown Completed [facility] Moderna COVID-19 Vaccine Moderna COVID-19 Vaccine Unknown Completed [facility] FluAD FluAD Unknown Completed [facility] FLUZONE HIGH DOSE OVER 65 FLUZONE HIGH DOSE OVER 65 Unknown Completed [facility] Prevnar 20 (PCV20) Prevnar 20 (PCV20) Unknown Completed [facility] Fluad (aIIV4) - SDS - 0.5mL Fluad (aIIV4) - SDS - 0.5mL Unknown Completed [facility] MODERNA COVID-19 VACCINE (LOW DOSE BOOSTER) MODERNA COVID-19 VACCINE (LOW DOSE BOOSTER) Unknown Completed [facility] Moderna COVID-19 Vaccine Moderna COVID-19 Vaccine Unknown Completed [facility] FluAD FluAD Unknown Completed [facility] FLUZONE HIGH DOSE OVER 65 FLUZONE HIGH DOSE OVER 65 Unknown Completed [facility] Prevnar 20 (PCV20) Prevnar 20 (PCV20) Unknown Completed [facility] Fluad (aIIV4) - SDS - 0.5mL Fluad (aIIV4) - SDS - 0.5mL Unknown Completed [facility] MODERNA COVID-19 VACCINE (LOW DOSE BOOSTER) MODERNA COVID-19 VACCINE (LOW DOSE BOOSTER) Unknown Completed [facility] Moderna COVID-19 Vaccine Moderna COVID-19 Vaccine Unknown Completed [facility] FluAD FluAD Unknown Completed [facility] FLUZONE HIGH DOSE OVER 65 FLUZONE HIGH DOSE OVER 65 Unknown Completed [facility] Prevnar 20 (PCV20) Prevnar 20 (PCV20) Unknown Completed [facility] Fluad (aIIV4) - SDS - 0.5mL Fluad (aIIV4) - SDS - 0.5mL Unknown Completed [facility] MODERNA COVID-19 VACCINE (LOW DOSE BOOSTER) MODERNA COVID-19 VACCINE (LOW DOSE BOOSTER) Unknown Completed [facility] Moderna COVID-19 Vaccine Moderna COVID-19 Vaccine Unknown Completed [facility] FluAD FluAD Unknown Completed [facility] FLUZONE HIGH DOSE OVER 65 FLUZONE HIGH DOSE OVER 65 Unknown Completed [facility] Prevnar 20 (PCV20) Prevnar 20 (PCV20) Unknown Completed [facility] Fluad (aIIV4) - SDS - 0.5mL Fluad (aIIV4) - SDS - 0.5mL Unknown Completed [facility] MODERNA COVID-19 VACCINE (LOW DOSE BOOSTER) MODERNA COVID-19 VACCINE (LOW DOSE BOOSTER) Unknown Completed [facility] Moderna COVID-19 Vaccine Moderna COVID-19 Vaccine Unknown Completed [facility] FluAD FluAD Unknown Completed [facility] FLUZONE HIGH DOSE OVER 65 FLUZONE HIGH DOSE OVER 65 Unknown Completed [facility] Prevnar 20 (PCV20) Prevnar 20 (PCV20) Unknown Completed [facility] Fluad (aIIV4) - SDS - 0.5mL Fluad (aIIV4) - SDS - 0.5mL Unknown Completed [facility] MODERNA COVID-19 VACCINE (LOW DOSE BOOSTER) MODERNA COVID-19 VACCINE (LOW DOSE BOOSTER) Unknown Completed [facility] Moderna COVID-19 Vaccine Moderna COVID-19 Vaccine Unknown Completed [facility] FluAD FluAD Unknown Completed [facility] FLUZONE HIGH DOSE OVER 65 FLUZONE HIGH DOSE OVER 65 Unknown Completed [facility] Prevnar 20 (PCV20) Prevnar 20 (PCV20) Unknown Completed [facility] Fluad (aIIV4) - SDS - 0.5mL Fluad (aIIV4) - SDS - 0.5mL Unknown Completed [facility] MODERNA COVID-19 VACCINE (LOW DOSE BOOSTER) MODERNA COVID-19 VACCINE (LOW DOSE BOOSTER) Unknown Completed [facility] Moderna COVID-19 Vaccine Moderna COVID-19 Vaccine Unknown Completed [facility] FluAD FluAD Unknown Completed [facility] FLUZONE HIGH DOSE OVER 65 FLUZONE HIGH DOSE OVER 65 Unknown Completed [facility] Prevnar 20 (PCV20) Prevnar 20 (PCV20) Unknown Completed [facility] Fluad (aIIV4) - SDS - 0.5mL Fluad (aIIV4) - SDS - 0.5mL Unknown Completed [facility] MODERNA COVID-19 VACCINE (LOW DOSE BOOSTER) MODERNA COVID-19 VACCINE (LOW DOSE BOOSTER) Unknown Completed [facility] Moderna COVID-19 Vaccine Moderna COVID-19 Vaccine Unknown Completed [facility] FluAD FluAD Unknown Completed [facility] FLUZONE HIGH DOSE OVER 65 FLUZONE HIGH DOSE OVER 65 Unknown Completed [facility] Vital Signs Vital Name Observation Time Observation Value Comments S ource height 2024-06-04 14:40:00 59.25 [in_i] Com [facility] weight 2024-06-04 14:40:00 122.2 [lb_av] Co mmon [facility] temperature 2024-06-04 14:40:00 97.8 [degF] Com [facility] bmi 2024-06-04 14:40:00 24.47 kg/m2 Comm on [facility] oximetry 2024-06-04 14:40:00 97 % Commo n [facility] respiratory rate 2024-06-04 14:40:00 16 /min Common [facility] blood pressure systolic 2024-06-04 14:40:00 128 mm[Hg[facility] blood pressure diastolic 2024-06-04 14:40:00 78 mm[Hg] Common [facility] height 2024-04-15 09:20:00 59.25 [in_i] Com [facility] weight 2024-04-15 09:20:00 122 [lb_av] Comm on [facility] temperature 2024-04-15 09:20:00 98 [degF] Comm on [facility] bmi 2024-04-15 09:20:00 24.43 kg/m2 Comm on [facility] oximetry 2024-04-15 09:20:00 94 % Commo n [facility] respiratory rate 2024-04-15 09:20:00 16 /min [facility] blood pressure systolic 2024-04-15 09:20:00 138 mm[Hg] [facility] blood pressure diastolic 2024-04-15 09:20:00 75 mm[Hg] [facility] height 2024-02-04 10:00:00 59.25 [in_i] Com [facility] weight 2024-02-04 10:00:00 122 [lb_av] Comm on [facility] temperature 2024-02-04 10:00:00 97.9 [degF] Com [facility] bmi 2024-02-04 10:00:00 24.43 kg/m2 Comm on [facility] oximetry 2024-02-04 10:00:00 95 % Commo n [facility] respiratory rate 2024-02-04 10:00:00 16 /min [facility] blood pressure systolic 2024-02-04 10:00:00 133 mm[Hg] Common [facility] blood pressure diastolic 2024-02-04 10:00:00 75 mm[Hg] [facility] height 2023-12-31 10:40:00 59.25 [in_i] Com [facility] weight 2023-12-31 10:40:00 120 [lb_av] Comm on [facility] temperature 2023-12-31 10:40:00 98.2 [degF] Com [facility] bmi 2023-12-31 10:40:00 24.03 kg/m2 Comm on [facility] oximetry 2023-12-31 10:40:00 95 % Commo n [facility] respiratory rate 2023-12-31 10:40:00 18 /min [facility] blood pressure systolic 2023-12-31 10:40:00 133 mm[Hg] [facility] blood pressure diastolic 2023-12-31 10:40:00 73 mm[Hg] [facility] height 2023-11-29 10:00:00 59.25 [in_i] Com [facility] weight 2023-11-29 10:00:00 121 [lb_av] Comm on [facility] temperature 2023-11-29 10:00:00 98.1 [degF] Com [facility] bmi 2023-11-29 10:00:00 24.23 kg/m2 Comm on [facility] oximetry 2023-11-29 10:00:00 95 % Commo n [facility] respiratory rate 2023-11-29 10:00:00 16 /min [facility] blood pressure systolic 2023-11-29 10:00:00 138 mm[Hg] Common [facility] blood pressure diastolic 2023-11-29 10:00:00 77 mm[Hg] [facility] height 2023-10-01 10:30:00 59.25 [in_i] Com [facility] weight 2023-10-01 10:30:00 126.0 [lb_av] Co [facility] temperature 2023-10-01 10:30:00 97.9 [degF] Com [facility] bmi 2023-10-01 10:30:00 25.23 kg/m2 Comm on [facility] oximetry 2023-10-01 10:30:00 95 % Commo n [facility] respiratory rate 2023-10-01 10:30:00 18 /min Common [facility] blood pressure systolic 2023-10-01 10:30:00 138 mm[Hg] Common [facility] blood pressure diastolic 2023-10-01 10:30:00 75 mm[Hg] Common [facility] height 2023-10-01 10:30:00 59.25 [in_i] Com [facility] weight 2023-10-01 10:30:00 126.0 [lb_av] Co [facility] temperature 2023-10-01 10:30:00 97.9 [degF] Com [facility] bmi 2023-10-01 10:30:00 25.23 kg/m2 Comm on [facility] oximetry 2023-10-01 10:30:00 95 % Commo n [facility] respiratory rate 2023-10-01 10:30:00 18 /min Common [facility] blood pressure systolic 2023-10-01 10:30:00 138 mm[Hg] Common [facility] blood pressure diastolic 2023-10-01 10:30:00 75 mm[Hg] Common [facility] height 2023-06-03 10:00:00 59.25 [in_i] Com [facility] weight 2023-06-03 10:00:00 124.6 [lb_av] Co mmon [facility] temperature 2023-06-03 10:00:00 97.9 [degF] Com [facility] bmi 2023-06-03 10:00:00 24.95 kg/m2 Comm on [facility] oximetry 2023-06-03 10:00:00 95 % Commo n [facility] respiratory rate 2023-06-03 10:00:00 17 /min [facility] blood pressure systolic 2023-06-03 10:00:00 136 mm[Hg] [facility] blood pressure diastolic 2023-06-03 10:00:00 79 mm[Hg] [facility] height 2022-07-09 15:00:00 59.25 [in_i] Com [facility] weight 2022-07-09 15:00:00 126.5 [lb_av] Co [facility] temperature 2022-07-09 15:00:00 96.3 [degF] Com [facility] bmi 2022-07-09 15:00:00 25.33 kg/m2 Comm on [facility] oximetry 2022-07-09 15:00:00 100 % Commo n [facility] respiratory rate 2022-07-09 15:00:00 16 /min [facility] blood pressure systolic 2022-07-09 15:00:00 139 mm[Hg] [facility] blood pressure diastolic 2022-07-09 15:00:00 76 mm[Hg] [facility] Encounters Start Date/Time End Date/Time Encounter Type Admission Type Attending Clinicians Care Facility Care Department Encounter ID Source 2024-04-09 14:07:00 Outpatient Andreina Joyner [facility] [id number] [facility] 2024-02-03 15:33[facility] [id number] [facility] 2023-11-28 07:18:00 Outpatient Andreina Joyner [facility] [id number] [facility] 2023-06-03 09:55:00 Outpatient Myrtle Berry [facility] [id number] [facility] 2022-07-09 14:52:03 Outpatient Karey Tyson [facility] [id number] [facility] 2024-06-04 00:00:00 2024-06-04 00:00:00 OFFICE VISIT ESTAB PT LEVEL 4 [facility] [id number] [facility] 2024-04-15 00:00:00 2024-04-15 00:00:00 OFFICE VISIT ESTAB PT LEVEL 4 [facility] [id number] [facility] 2024-02-05 00:00:00 2024-02-05 00:00:00 (TEL) [facility] [id number] [facility] 2024-02-04 00:00:00 2024-02-04 00:00:00 OFFICE VISIT ESTAB PT LEVEL 4 [facility] [id number] [facility] 2024-02-03 00:00:00 2024-02-03 00:00:00 (TEL) [facility] [id number] [facility] 2023-12-31 00:00:00 2023-12-31 00:00:00 OFFICE VISIT ESTAB PT LEVEL 4 [facility] [id number] [facility] 2023-12-05 00:00:00 2023-12-05 00:00:00 (TEL) [facility] [id number] [facility] 2023-11-29 00:00:00 2023-11-29 00:00:00 OFFICE VISIT NEW PT LEVEL 4 [facility] [id number] [facility] 2023-11-27 00:00:00 2023-11-27 00:00:00 (TEL) [facility] [id number] [facility] 2023-10-01 00:00:00 2023-10-01 00:00:00 OFFICE VISIT ESTAB PT LEVEL 3 [facility] [id number] [facility] 2023-10-01 00:00:00 2023-10-01 00:00:00 SUB ANNUAL [facility]LL[facility] VISIT [facility] [id number] [facility] 2023-09-24 00:00:00 2023-09-24 00:00:00 Outpatient GC_GCBZW_Ka diyala_S PRIV PRIV [id number] [facility] 2023-09-23 00:00:00 2023-09-23 00:00:00 Outpatient GC_GCBZW_Ka diyala_S PRIV PRIV [id number] [facility] 2023-09-16 00:00:00 2023-09-16 00:00:00 (TEL) [facility] [id number] [facility] 2023-06-03 00:00:00 2023-06-03 00:00:00 OFFICE VISIT ESTAB PT LEVEL 3 [facility] [id number] [facility] 2022-09-18 00:00:00 2022-09-18 00:00:00 (TEL) [facility] [id number] [facility] 2022-08-29 00:00:00 2022-08-29 00:00:00 (TEL) [facility]C [facility] [id number] [facility] 2022-07-09 00:00:00 2022-07-09 00:00:00 OFFICE VISIT ESTAB PT LEVEL 4 [facility] [id number] [facility] 2020-02-04 03:35:00 2020-02-04 03:35:00 Outpatient Erum-Joseo _A_ VFP VFP [id number] [facility] 2020-02-04 03:35:00 2020-02-04 03:35:00 Outpatient Erum-Mbayo _A_AH VFP [facility] [id number] [facility] 2020-02-04 03:35:00 2020-02-04 03:35:00 Outpatient Erum-Mbayo _A_AH VFP [facility] [id number] [facility] 2020 07:18:00 2020 07:18:00 Outpatient Erum-Mbayo _A_AH VFP [facility] [id number] [facility] Results Test Description Test Time Test Comments Results Result Co mments Source CBC W/O DIFF, WITH [id number] 00:00:00* Test Item Value Reference Range Interpretation Comme nts HEMATOCRIT (test code = 02347-4) 41.4 % See_Comment [Automated messa ge] The system which generated this result transmitted reference range: 34.0-45.0 %. The reference range was not used to interpret this result as normal/abnormal. HEMOGLOBIN (test code = 718-7) 13.9 G/DL See_Comment [Automated messa ge] The system which generated this result transmitted reference range: 11.5-15.5 G/DL. The reference range was not used to interpret this result as normal/abnormal. MCH (test code = 56836-7) 29.8 PG See_Comment [Automated messa ge] The system which generated this result transmitted reference range: 25.0-33.0 PG. The reference range was not used to interpret this result as normal/abnormal. MCHC (test code = 90314-9) 33.6 G/DL See_Comment [Automated messa ge] The system which generated this result transmitted reference range: 31.0-36.0 G/DL. The reference range was not used to interpret this result as normal/abnormal. MCV (test code = 35183-5) 88.7 fL See_Comment [Automated messa ge] The system which generated this result transmitted reference range: 80.0-99.0 fL. The reference range was not used to interpret this result as normal/abnormal. PLATELET COUNT (test code = 83268-1) 289 K/UL See_Comment [Automated messa ge] The system which generated this result transmitted reference range: 130-400 K/UL. The reference range was not used to interpret this result as normal/abnormal. RBC (test code = 58384-7) 4.67 M/UL See_Comment [Automated messa ge] The system which generated this result transmitted reference range: 3.80-5.40 M/UL. The reference range was not used to interpret this result as normal/abnormal. WBC (test code = 16176-6) 9.2 K/UL See_Comment [Automated [employer] ge] The system which generated this result transmitted reference range: 3.5-11.0 K/UL. The reference range was not used to interpret this result as normal/abnormal. HEMOGLOBIN [id number] 00:00:00* Test Item Value Reference Range Interpretation Comme [facility] HEMOGLOBIN A1c (test code = 4548-4) 6.0 % See_Comment H [Automated [employer] ge] The system which generated this result transmitted reference range: 4.2-5.6 %. The reference range was not used to interpret this result as normal/abnormal. VITAMIN D, 25 [id number] 00:00:00* Test Item Value Reference Range Interpretation Comme [facility] VITAMIN D, 25 OH (test code = 1989-3) 13 NG/ML SEE BELOW NG/ML L COMPREHENSIVE METABOLIC [id number] 00:00:00* Test Item Value Reference Range Interpretation Comme [facility] ALBUMIN (test code = 1751-7) 4.5 G/DL See_Comment [Automated [employer] ge] The system which generated this result transmitted reference range: 3.5-5.2 G/DL. The reference range was not used to interpret this result as normal/abnormal. ALKALINE PHOSPHATASE (test code = 6768-6) 98 U/L See_Comment [Automated message] The system which generated this result transmitted reference range: 40-142 U/L. The reference range was not used to interpret this result as normal/abnormal. BILIRUBIN, TOTAL (test code = 1975-2) 0.4 MG/DL See_Comment [Automated message] The system which generated this result transmitted reference range: <=1.2 MG/DL. The reference range was not used to interpret this result as normal/abnormal. BUN (test code = 3094-0) 10 MG/DL See_Comment [Automated messa ge] The system which generated this result transmitted reference range: 8-23 MG/DL. The reference range was not used to interpret this result as normal/abnormal. CALCIUM (test code = 90642-2) 9.7 MG/DL See_Comment [Automated messa ge] The system which generated this result transmitted reference range: 8.5-10.5 MG/DL. The reference range was not used to interpret this result as normal/abnormal. CALC A/G RATIO (test code = 1759-0) 1.7 RATIO See_Comment [Automated messa ge] The system which generated this result transmitted reference range: 1.0-2.6 RATIO. The reference range was not used to interpret this result as normal/abnormal. CALC BUN/CREAT (test code = 3097-3) 14 RATIO See_Comment [Automated messa ge] The system which generated this result transmitted reference range: 6-28 RATIO. The reference range was not used to interpret this result as normal/abnormal. CALC GLOBULIN (test code = 04660-0) 2.6 G/DL See_Comment [Automated messa ge] The system which generated this result transmitted reference range: 1.9-3.7 G/DL. The reference range was not used to interpret this result as normal/abnormal. CARBON DIOXIDE (test code = 1963-8) 22 MEQ/L See_Comment [Automated messa ge] The system which generated this result transmitted reference range: 19-31 MEQ/L. The reference range was not used to interpret this result as normal/abnormal. CHLORIDE (test code = 2075-0) 103 MEQ/L See_Comment [Automated messa ge] The system which generated this result transmitted reference range: 95-107 MEQ/L. The reference range was not used to interpret this result as normal/abnormal. CREATININE (test code = 2160-0) 0.70 MG/DL See_Comment [Automated messa ge] The system which generated this result transmitted reference range: 0.60-1.30 MG/DL. The reference range was not used to interpret this result as normal/abnormal. eGFR (2020 CKD-EPI) (test code = 07372-4) 86 ML/MIN/1.73 See_Comment [Automated messa ge] The system which generated this result transmitted reference range: >60 ML/MIN/1.73. The reference range was not used to interpret this result as normal/abnormal. GLUCOSE (test code = 1558-6) 130 MG/DL See_Comment H [Automated messa ge] The system which generated this result transmitted reference range: 70-99 MG/DL. The reference range was not used to interpret this result as normal/abnormal. POTASSIUM (test code = 2823-3) 3.7 MEQ/L See_Comment [Automated messa ge] The system which generated this result transmitted reference range: 3.5-5.4 MEQ/L. The reference range was not used to interpret this result as normal/abnormal. PROTEIN, TOTAL (test code = 2885-2) 7.1 G/DL See_Comment [Automated messa ge] The system which generated this result transmitted reference range: 6.1-8.3 G/DL. The reference range was not used to interpret this result as normal/abnormal. AST (test code = 1920-8) 13 U/L See_Comment [Automated messa ge] The system which generated this result transmitted reference range: 9-40 U/L. The reference range was not used to interpret this result as normal/abnormal. ALT (test code = 1742-6) 11 U/L See_Comment [Automated messa ge] The system which generated this result transmitted reference range: 5-40 U/L. The reference range was not used to interpret this result as normal/abnormal. SODIUM (test code = 2951-2) 142 MEQ/L See_Comment [Automated messa ge] The system which generated this result transmitted reference range: 133-146 MEQ/L. The reference range was not used to interpret this result as normal/abnormal. CBC W/AUTO [id number] 00:00:00* Test Item Value Reference Range Interpretation Comme nts NUCLEATED RBCS (test code = 02639-8) 0.0 /100 WBC'S See_Comment [Automated messa ge] The system which generated this result transmitted reference range: 0.0 /100 WBC'S. The reference range was not used to interpret this result as normal/abnormal. ABSOLUTE EOSINOPHILS (test code = 36176-5) 0.43 K/UL See_Comment [Automated messa ge] The system which generated this result transmitted reference range: 0.00-0.50 K/UL. The reference range was not used to interpret this result as normal/abnormal. ABSOLUTE LYMPHOCYTES (test code = 27226-2) 1.36 K/UL See_Comment [Automated messa ge] The system which generated this result transmitted reference range: 1.00-4.00 K/UL. The reference range was not used to interpret this result as normal/abnormal. ABSOLUTE MONOCYTES (test code = 96298-6) 0.74 K/UL See_Comment [Automated messa ge] The system which generated this result transmitted reference range: 0.20-1.00 K/UL. The reference range was not used to interpret this result as normal/abnormal. ABSOLUTE NEUTROPHILS (test code = 16014-5) 5.61 K/UL See_Comment [Automated messa ge] The system which generated this result transmitted reference range: 1.50-7.50 K/UL. The reference range was not used to interpret this result as normal/abnormal. BASOPHILS (test code = 43702-2) 0.9 % EOSINOPHILS (test code = 66874-0) 5.2 % HEMATOCRIT (test code = 79755-1) 43.2 % See_Comment [Automated messa ge] The system which generated this result transmitted reference range: 34.0-45.0 %. The reference range was not used to interpret this result as normal/abnormal. HEMOGLOBIN (test code = 718-7) 14.3 G/DL See_Comment [Automated messa ge] The system which generated this result transmitted reference range: 11.5-15.5 G/DL. The reference range was not used to interpret this result as normal/abnormal. LYMPHOCYTES (test code = 61141-3) 16.5 % MCH (test code = 39102-4) 30.0 PG See_Comment [Automated messa ge] The system which generated this result transmitted reference range: 25.0-33.0 PG. The reference range was not used to interpret this result as normal/abnormal. MCHC (test code = 48551-7) 33.1 G/DL See_Comment [Automated messa ge] The system which generated this result transmitted reference range: 31.0-36.0 G/DL. The reference range was not used to interpret this result as normal/abnormal. MCV (test code = 00802-1) 90.6 fL See_Comment [Automated messa ge] The system which generated this result transmitted reference range: 80.0-99.0 fL. The reference range was not used to interpret this result as normal/abnormal. MONOCYTES (test code = 07350-3) 9.0 % NEUTROPHILS (test code = 78492-0) 68.2 % PLATELET COUNT (test code = 15950-8) 272 K/UL See_Comment [Automated messa ge] The system which generated this result transmitted reference range: 130-400 K/UL. The reference range was not used to interpret this result as normal/abnormal. RBC (test code = 88874-0) 4.77 M/UL See_Comment [Automated messa ge] The system which generated this result transmitted reference range: 3.80-5.40 M/UL. The reference range was not used to interpret this result as normal/abnormal. RDW (test code = 28126-5) 12.8 % See_Comment [Automated messa ge] The system which generated this result transmitted reference range: 11.5-15.0 %. The reference range was not used to interpret this result as normal/abnormal. WBC (test code = 21622-7) 8.2 K/UL See_Comment [Automated messa ge] The system which generated this result transmitted reference range: 3.5-11.0 K/UL. The reference range was not used to interpret this result as normal/abnormal. HEMOGLOBIN [id number] 00:00:00* Test Item Value Reference Range Interpretation Comme nts HEMOGLOBIN A1c (test code = 4548-4) 6.4 % See_Comment H [Automated messa ge] The system which generated this result transmitted reference range: 4.2-5.6 %. The reference range was not used to interpret this result as normal/abnormal. LIPID PANEL WITH REFLEX DIRECT [id number] 00:00:00* Test Item Value Reference Range Interpretation Comme nts CALC LDL CHOL (test code = 64591-1) 137 MG/DL See_Comment H [Automated messa ge] The system which generated this result transmitted reference range: <100 MG/DL. The reference range was not used to interpret this result as normal/abnormal. CHOLESTEROL (test code = 2093-3) 243 MG/DL See_Comment H [Automated messa ge] The system which generated this result transmitted reference range: <200 MG/DL. The reference range was not used to interpret this result as normal/abnormal. HDL CHOLESTEROL (test code = 2085-9) 72 MG/DL See_Comment [Automated messa ge] The system which generated this result transmitted reference range: >39 MG/DL. The reference range was not used to interpret this result as normal/abnormal. RISK RATIO LDL/HDL (test code = 82929-5) 1.90 RATIO See_Comment [Automated message] The system which generated this result transmitted reference range: <3.22 RATIO. The reference range was not used to interpret this result as normal/abnormal. TRIGLYCERIDES (test code = 2571-8) 203 MG/DL See_Comment H [Automated messa ge] The system which generated this result transmitted reference range: <150 MG/DL. The reference range was not used to interpret this result as normal/abnormal. COMPREHENSIVE METABOLIC [id number] 00:00:00* Test Item Value Reference Range Interpretation Comme nts ALBUMIN (test code = 1751-7) 4.6 G/DL See_Comment [Automated [employer] ge] The system which generated this result transmitted reference range: 3.5-5.2 G/DL. The reference range was not used to interpret this result as normal/abnormal. ALKALINE PHOSPHATASE (test code = 6768-6) 79 U/L See_Comment [Automated message] The system which generated this result transmitted reference range: 40-142 U/L. The reference range was not used to interpret this result as normal/abnormal. BILIRUBIN, TOTAL (test code = 1975-2) 0.6 MG/DL See_Comment [Automated message] The system which generated this result transmitted reference range: <=1.2 MG/DL. The reference range was not used to interpret this result as normal/abnormal. BUN (test code = 3094-0) 8 MG/DL See_Comment [Automated [employer]] The system which generated this result transmitted reference range: 8-23 MG/DL. The reference range was not used to interpret this result as normal/abnormal. CALCIUM (test code = 18935-5) 9.8 MG/DL See_Comment [Automated [employer]] The system which generated this result transmitted reference range: 8.5-10.5 MG/DL. The reference range was not used to interpret this result as normal/abnormal. CALC A/G RATIO (test code = 1759-0) 1.9 RATIO See_Comment [Automated messa ge] The system which generated this result transmitted reference range: 1.0-2.6 RATIO. The reference range was not used to interpret this result as normal/abnormal. CALC BUN/CREAT (test code = 3097-3) 11 RATIO See_Comment [Automated messa ge] The system which generated this result transmitted reference range: 6-28 RATIO. The reference range was not used to interpret this result as normal/abnormal. CALC GLOBULIN (test code = 55969-9) 2.4 G/DL See_Comment [Automated messa ge] The system which generated this result transmitted reference range: 1.9-3.7 G/DL. The reference range was not used to interpret this result as normal/abnormal. CARBON DIOXIDE (test code = 1963-8) 27 MEQ/L See_Comment [Automated messa ge] The system which generated this result transmitted reference range: 19-31 MEQ/L. The reference range was not used to interpret this result as normal/abnormal. CHLORIDE (test code = 2075-0) 104 MEQ/L See_Comment [Automated messa ge] The system which generated this result transmitted reference range: 95-107 MEQ/L. The reference range was not used to interpret this result as normal/abnormal. CREATININE (test code = 2160-0) 0.70 MG/DL See_Comment [Automated messa ge] The system which generated this result transmitted reference range: 0.60-1.30 MG/DL. The reference range was not used to interpret this result as normal/abnormal. eGFR (2020 CKD-EPI) (test code = 66659-6) 86 ML/MIN/1.73 See_Comment [Automated messa ge] The system which generated this result transmitted reference range: >60 ML/MIN/1.73. The reference range was not used to interpret this result as normal/abnormal. GLUCOSE (test code = 1558-6) 130 MG/DL See_Comment H [Automated messa ge] The system which generated this result transmitted reference range: 70-99 MG/DL. The reference range was not used to interpret this result as normal/abnormal. POTASSIUM (test code = 2823-3) 4.0 MEQ/L See_Comment [Automated messa ge] The system which generated this result transmitted reference range: 3.5-5.4 MEQ/L. The reference range was not used to interpret this result as normal/abnormal. PROTEIN, TOTAL (test code = 2885-2) 7.0 G/DL See_Comment [Automated messa ge] The system which generated this result transmitted reference range: 6.1-8.3 G/DL. The reference range was not used to interpret this result as normal/abnormal. AST (test code = 1920-8) 17 U/L See_Comment [Automated messa ge] The system which generated this result transmitted reference range: 9-40 U/L. The reference range was not used to interpret this result as normal/abnormal. ALT (test code = 1742-6) 13 U/L See_Comment [Automated messa ge] The system which generated this result transmitted reference range: 5-40 U/L. The reference range was not used to interpret this result as normal/abnormal. SODIUM (test code = 2951-2) 144 MEQ/L See_Comment [Automated messa ge] The system which generated this result transmitted reference range: 133-146 MEQ/L. The reference range was not used to interpret this result as normal/abnormal.
--- NOTE | 2024-07-20 15:54 | RAD REPORT ---
EXAM DESCRIPTION: Mellisa Single View07/20/2024 3:39 pm CLINICAL HISTORY: Chest pain COMPARISON: November 1999 FINDINGS: Large hiatal hernia unchanged Lungs appear clear of acute infiltrate. Heart is mildly enlarged Avulsion fracture lateral right humeral head
--- NOTE | 2024-07-20 15:54 | RAD REPORT ---
EXAM DESCRIPTION: RAD - Humerus Right - 07/20/2024 3:39 pm CLINICAL HISTORY: Right arm pain status post fall FINDINGS: Large avulsion fracture right humeral head. No dislocation
--- NOTE | 2024-07-20 16:04 | ER ---
Nurse's Notes [facility] Name: Aliya Goldberg Age: 84 yrs Sex: Female : 1940 Arrival Date: 07/20/2024 Time: 14:41 Bed 18 Private MD: Diagnosis: Proximal humerus fracture right upper extremity, mechanical fall Presentation: 07/20 15:13 Chief complaint: Patient states: slipped on plastic bag on tile floor, fell on right iw arm/shoulder. 15:13 Acuity: STEPHANIE 3 iw 15:14 Coronavirus screen: At this time, the client does not indicate any symptoms associated iw with coronavirus-19. Ebola Screen: No symptoms or risks identified at this time. Initial Sepsis Screen: Does the patient meet any 2 criteria? No. Patient's initial sepsis screen is negative. Does the patient have a suspected source of infection? No. Patient's initial sepsis screen is negative. Risk Assessment: Do you want to hurt yourself or someone else? Patient reports no desire to harm self or others. Onset of symptoms was July 20, 2024. 15:14 Method Of Arrival: Ambulatory iw Triage Assessment: 15:17 General: Appears uncomfortable, Behavior is calm, cooperative, appropriate for age. bp Pain: Complains of pain in right bicep. EENT: No deficits noted. Neuro: No deficits noted. Cardiovascular: No deficits noted. Respiratory: No deficits noted. GI: No signs and/or symptoms were reported involving the gastrointestinal system. : No signs and/or symptoms were reported regarding the genitourinary system. Derm: No deficits noted. Musculoskeletal: Bony deformity noted of right bicep. Historical: - Allergies: 15:15 nitrous oxide; iw - PMHx: 15:15 breast cancer; Glaucoma; Hypertensive disorder; iw - PSHx: 15:15 Cholecystectomy; knee replacement; Lumpectomy of breast; Right; Total abdominal iw hysterectomy; - Immunization history:: Adult Immunizations up to date. - Infectious Disease History:: Denies. - Social history:: Smoking status: Patient denies any tobacco usage or history of. Screenin:18 [facility] ED Fall Risk Assessment (Adult) History of falling in the last 3 months, bp including since admission Yes- single mechanical fall (1 pt) Confusion or Disorientation No (0 pts) Intoxicated or Sedated No (0 pts) Impaired Gait No (0 pts) Mobility Assist Device Used No (0 pt) Altered Elimination No (0 pt) Score/Fall Risk Level 0 - 2 = Low Risk. Abuse screen: Denies threats or abuse. Denies injuries from another. Nutritional screening: No deficits noted. Tuberculosis screening: No symptoms or risk factors identified. Assessment: 15:18 General: SLING IN PLACE. bp Vital Signs: 15:14 BP 128 / 81; Pulse 110; Resp 16; Temp 98.2; Pulse Ox 96% on R/A; Weight 54.43 kg; iw Height 5 ft. 0 in. ; Pain 10/10; 15:45 BP 129 / 80; Pulse 99; Resp 16; Pulse Ox 96% ; bp 15:14 Body Mass Index 23.44 (54.43 kg, 152.4 cm) iw 15:14 Pain Scale: Adult iw ED Course: 14:44 Patient arrived in ED. mr 14:46 Salena Bernal MD is Attending Physician. sp3 15:14 Triage completed. iw 15:15 Arm band placed on Patient placed. iw 15:17 Augusto Rebollar, RN is Primary Nurse. bp 15:18 Patient has correct armband on for positive identification. bp 15:40 Humerus Right XRAY In Process Unspecified. EDMS 15:40 CXR XRAY In Process Unspecified. EDMS 15:45 Inserted saline lock: 22 gauge in left forearm, using aseptic technique. bp 16:03 Yahir Norris MD is Referral Physician. sp3 16:28 Provided Education on: N/A. bp 16:28 No provider procedures requiring assistance completed. IV discontinued, intact, bp bleeding controlled, No redness/swelling at site. Pressure dressing applied. Administered Medications: 15:45 Drug: morphine IVP or IV 4 mg IVP once over 4 mins Route: IVP; Infused Over: 4 mins; bp Site: left forearm; 16:08 Follow up: Response: No adverse reaction bp 15:45 Drug: Ondansetron IVP 4 mg IVP once; over 2 minutes Route: IVP; Site: left forearm; bp 16:08 Follow up: Response: No adverse reaction bp Medication: 15:18 VIS not applicable for this client. bp Outcome: 16:04 Discharge ordered by . sp3 16:28 Discharged to home via wheelchair, with family, bp 16:28 Condition: stable 16:28 Discharge instructions given to patient, family, Instructed on discharge instructions, follow up and referral plans. medication usage, Demonstrated understanding of instructions, follow-up care, medications, Prescriptions given X 1, 16:28 Patient left the ED. bp Signatures: Dispatcher [employer] EDID Pooja Carbajal, Reg Reg mr Ana Rosa Villatoro RN RN iw Augusto Rebollar RN RN bp Patel, Setul, MD MD sp3
--- NOTE | 2024-07-20 16:04 | EDPHYS ---
Physician Documentation [facility] Name: Aliya Goldberg Age: 84 yrs Sex: Female : 1940 Arrival Date: 07/20/2024 Time: 14:41 Bed 18 Private MD: ED Physician Salena Bernal HPI: 07/20 16:00 This 84 yrs old Female presents to ER via Ambulatory with complaints of Fall Injury. sp3 16:00 84-year-old female with history of breast cancer, hypertension presents to the ED with sp3 right shoulder and humerus pain secondary to mechanical ground-level fall without medical prodrome. Patient denies any other injury including head injury, headache, neck pain, chest pain, back pain, abdominal pain, vomiting, diarrhea, syncope, near syncope, chest pain, shortness of breath or any other symptoms prior to the fall or subsequent. Remainder of ROS negative.. Historical: - Allergies: 15:15 nitrous oxide; iw - PMHx: 15:15 breast cancer; Glaucoma; Hypertensive disorder; iw - PSHx: 15:15 Cholecystectomy; knee replacement; Lumpectomy of breast; Right; Total abdominal iw hysterectomy; - Immunization history:: Adult Immunizations up to date. - Infectious Disease History:: Denies. - Social history:: Smoking status: Patient denies any tobacco usage or history of. ROS: 16:01 Constitutional: Negative for fever, chills, and weight loss, Eyes: Negative for injury, sp3 pain, redness, and discharge, Neck: Negative for injury, pain, and swelling, Cardiovascular: Negative for chest pain, palpitations, and edema, Respiratory: Negative for shortness of breath, cough, wheezing, and pleuritic chest pain, Abdomen/GI: Negative for abdominal pain, nausea, vomiting, diarrhea, and constipation, Back: Negative for injury and pain, Skin: Negative for injury, rash, and discoloration, Neuro: Negative for headache, weakness, numbness, tingling, and seizure, Psych: Negative for depression, anxiety, suicide ideation, homicidal ideation, and hallucinations, Allergy/Immunology: Negative for hives, rash, and allergies, Endocrine: Negative for neck swelling, polydipsia, polyuria, polyphagia, and marked weight changes, 16:01 All other systems are negative, Exam: 16:01 Constitutional: This is a well developed, well nourished patient who is awake, alert, sp3 and in no acute distress. Head/Face: Normocephalic, atraumatic. Eyes: Pupils equal round and reactive to light, extra-ocular motions intact. Lids and lashes normal. Conjunctiva and sclera are non-icteric and not injected. Cornea within normal limits. Periorbital areas with no swelling, redness, or edema. ENT: Nares patent. No nasal discharge, no septal abnormalities noted. External auditory canals are clear. Oropharynx with no redness, swelling, or masses, exudates, or evidence of obstruction, uvula midline. Mucous membranes moist. Neck: Trachea midline, no thyromegaly or masses palpated, and no cervical lymphadenopathy. Supple, full range of motion without nuchal rigidity, or vertebral point tenderness. No Meningismus. Chest/axilla: Normal chest wall appearance and motion. Nontender with no deformity. No lesions are appreciated. Cardiovascular: Regular rate and rhythm with a normal S1 and S2. No gallops, murmurs, or rubs. Normal PMI, no JVD. No pulse deficits. Respiratory: Lungs have equal breath sounds bilaterally, clear to auscultation and percussion. No rales, rhonchi or wheezes noted. No increased work of breathing, no retractions or nasal flaring. Abdomen/GI: Soft, non-tender, with normal bowel sounds. No distension or tympany. No guarding or rebound. No evidence of tenderness throughout. Back: No spinal tenderness. No costovertebral tenderness. Full range of motion. Skin: Warm, dry with normal turgor. Normal color with no rashes, no lesions, and no evidence of cellulitis. Neuro: Awake and alert, GCS 15, oriented to person, place, time, and situation. Cranial nerves II-XII grossly intact. Motor strength 5/5 in all extremities. Sensory grossly intact. Cerebellar exam normal. Normal gait. Psych: Awake, alert, with orientation to person, place and time. Behavior, mood, and affect are within normal limits. 16:01 Musculoskeletal/extremity: Positive deformity noted proximal humerus on the right side. Distal neurovascular exam is normal. . Vital Signs: 15:14 BP 128 / 81; Pulse 110; Resp 16; Temp 98.2; Pulse Ox 96% on R/A; Weight 54.43 kg; iw Height 5 ft. 0 in. ; Pain 10/10; 15:45 BP 129 / 80; Pulse 99; Resp 16; Pulse Ox 96% ; bp 15:14 Body Mass Index 23.44 (54.43 kg, 152.4 cm) iw 15:14 Pain Scale: Adult iw MDM: 15:12 Patient medically screened. sp3 16:01 Data reviewed: vital signs, nurses notes, radiologic studies. ED course: 84-year-old sp3 female with mechanical ground-level fall with right upper extremity injury. Considered fracture versus contusion. X-ray demonstrates proximal humerus fracture with tuberosity involvement. Will place patient in a splint and administer morphine and ondansetron as needed for IV pain control with subsequent discharge and follow-up to Dr. Robertson's's office with whom she has an established relationship. Patient will be discharged on NSAID and tramadol coupled with OTC ibuprofen for pain control.. 07/20 15:12 Order name: Humerus Right XRAY; Complete Time: 16:05 sp3 07/20 15:12 Order name: CXR XRAY; Complete Time: 16:05 sp3 07/20 15:12 Order name: NPO; Complete Time: 15:19 sp3 07/20 16:05 Order name: Sling; Complete Time: 16:08 sp3 Administered Medications: 15:45 Drug: morphine IVP or IV 4 mg IVP once over 4 mins Route: IVP; Infused Over: 4 mins; bp Site: left forearm; 16:08 Follow up: Response: No adverse reaction bp 15:45 Drug: Ondansetron IVP 4 mg IVP once; over 2 minutes Route: IVP; Site: left forearm; bp 16:08 Follow up: Response: No adverse reaction bp Disposition Summary: 07/20/24 16:04 Discharge Ordered Notes: Location: Home sp3 Condition: Stable sp3 Diagnosis - Proximal humerus fracture right upper extremity, mechanical fall sp3 Followup: sp3 - With: Private Physician - When: Upon discharge from the Emergency Department - Reason: Continuance of care Followup: sp3 - With: Yahir Norris MD - When: Upon discharge from the Emergency Department - Reason: Recheck today's complaints Discharge Instructions: - Discharge Summary Sheet sp3 - Humerus Fracture Treated With Immobilization sp3 Forms: - Medication Reconciliation Form sp3 - Antibiotic Education sp3 - Prescription Opioid Use sp3 - Patient Portal Instructions sp3 - Leadership Thank You Letter sp3 Prescriptions: - Tramadol 50 mg Oral Tablet - take 1 tablet ORAL route every 8 hours as needed; 12 tablet; Refills: 0, sp3 Product Selection Permitted Signatures: Dispatcher [employer] Ana Rosa Aguilar RN RN iw Peltier, Brian, RN RN bp Patel, Setul, MD MD sp3
[2024-07-20 16:58] VITALS: TEMP 98.2; O2SAT 96
[2024-07-20 16:59] VITALS: BP 129/80
== END 2024-07-20 16:28 | disposition home or self-care (01) ==
LOC: ER 14:41
PROC: 2W3AX1Z Immobilization of Right Upper Arm using Splint (ICD-10-PCS; principal; 2024-07-20)
DX: S42.201A Unspecified fracture of upper end of right humerus, initial encounter for closed fracture (principal); W18.30XA Fall on same level, unspecified, initial encounter
CPT/HCPCS: 71045; 96374; 96375; 99284